=== PATIENT | male | born 1985 | race Two or more races ===

== ENCOUNTER 2018-02-07 12:51 | Inpatient (IN) | payer MEDICAID ==
--- NOTE | 2018-02-07 13:03 | ED Physician Chart ---
ED Chief Complaint/HPI - Patient Information Date Seen:: 02/07/18 Time Seen:: 13:02 Chief Complaint:: Abdominal pain History of Present Illness:: 32 yo male had chills, sweats, nausea, vomiting and diarrhea in the morning for 8 months. Patient started to have intermittent LUQ abdominal dull pain for 1.5 weeks. Two days ago, patient started to have intermittent sharp right flank pain. Since this morning, the pain had became worse and persisted. Patient vomited 12 times this morning. ED Review of Systems - Review of Systems General/Constitutional: Chills Skin: No rash Head: Light headed Eyes: No loss of vision ENT: Earache, No nasal drainage Neck: No neck pain Cardio Vascular: No palpitations GI: Nausea, Vomiting, Diarrhea, Pain Musculoskeletal: No bone or joint pain Psychiatric: No prior psych history Neurological: No focal symptoms ED Past Medical History - Past Medical History Past Medical History: No significant medical hx Social History: Non Smoker, Alcohol (occcoai), Illicit Drug Use (Marijuana) Surgical History: None Family Medical History - Family Member Maternal Grandmother Hx Family Cancer: Yes (Breast cancer) Mother History Unknown: Yes ED Physical Exam - Physical Examination General/Constitutional: Awake, Alert Head: Atraumatic Eyes: PERRL Skin: No skin lesions ENMT: Nasal exam nl Neck: No nuchal rigidity Respiratory: Nl effort/Exclusion, No Wheeze/Rhonchi/Rales Cardio Vascular: RRR, No murmur, gallop, rubs, NL S1 S2 Other GI comments:: Epigastric and LUQ tenderness. Right CVA percussion tenderness. Abdomen distended. Extremities: normal strength in all extremities Neuro/Psych: Alert/oriented, No focal deficits ED Labs/Radiology/EKG Results - Lab Results Results: Laboratory Last Values WBC 6.4 Th/cmm (4.8-10.8) 02/07/18 13:39 RBC 4.18 Mil/cmm (4.30-5.70) L 02/07/18 13:39 Hgb 14.6 gm/dL (12-16) 02/07/18 13:39 Hct 43.0 % (41.0-60) 02/07/18 13:39 MCV 102.7 fl (80-99) H 02/07/18 13:39 MCH 35.0 pg (26.0-30.0) H 02/07/18 13:39 MCHC Differential 34.0 pg (28.0-36.0) 02/07/18 13:39 RDW 13.1 % (11.5-20.0) 02/07/18 13:39 Plt Count 146 Th/cmm (150-400) L 02/07/18 13:39 MPV 9.5 fl 02/07/18 13:39 Add Manual Diff YES 02/07/18 13:39 Band Neutrophils % 16 % (0-10) H 02/07/18 13:39 Neutrophils (Manual) 71 % (40-80) 02/07/18 13:39 Lymphocytes 7 % (20-50) L 02/07/18 13:39 Monocytes 5 % (2-10) 02/07/18 13:39 Eosinophils 0 % (0-5) 02/07/18 13:39 Basophils 1 % (0-3) 02/07/18 13:39 Sodium 132 mEq/L (136-145) L 02/07/18 13:39 Potassium 3.6 mEq/L (3.5-5.1) 02/07/18 13:39 Chloride 99 mEq/L (98-107) 02/07/18 13:39 Carbon Dioxide 21.5 mEq/L (21.0-31.0) 02/07/18 13:39 Anion Gap 15.1 (7.0-16.0) 02/07/18 13:39 BUN 9 mg/dL (7-25) 02/07/18 13:39 Creatinine 0.9 mg/dL (0.7-1.3) 02/07/18 13:39 Est GFR ( Amer) > 60.0 ml/min (>90) 02/07/18 13:39 Est GFR (Non-Af Amer) > 60.0 ml/min 02/07/18 13:39 BUN/Creatinine Ratio 10.0 02/07/18 13:39 Glucose 186 mg/dL (70-105) H 02/07/18 13:39 Calcium 8.2 mg/dL (8.6-10.3) L 02/07/18 13:39 Total Bilirubin 1.6 mg/dL (0.3-1.0) H 02/07/18 13:39 AST 143 U/L (13-39) H 02/07/18 13:39 ALT 28 U/L (7-52) 02/07/18 13:39 Alkaline Phosphatase 149 U/L (34-104) H 02/07/18 13:39 Total Protein 6.5 gm/dL (6.0-8.3) 02/07/18 13:39 Albumin 3.4 gm/dL (4.2-5.5) L 02/07/18 13:39 Globulin 3.1 gm/dL 02/07/18 13:39 Albumin/Globulin Ratio 1.1 (1.0-1.8) 02/07/18 13:39 Amylase 37 U/L (29-103) 02/07/18 13:39 Lipase 42 U/L (11-82) 02/07/18 13:39 Urine Source RANDOM 02/07/18 14:20 Urine Color DARK YELLOW 02/07/18 14:20 Urine Clarity CLEAR (CLEAR) 02/07/18 14:20 Urine pH 6.0 (4.6 - 8.0) 02/07/18 14:20 Ur Specific [place] 1.025 (1.005-1.030) 02/07/18 14:20 Urine Protein 30 mg/dL (NEGATIVE) H 02/07/18 14:20 Urine Glucose (UA) NEGATIVE mg/dL (NEGATIVE) 02/07/18 14:20 Urine Ketones NEGATIVE mg/dL (NEGATIVE) 02/07/18 14:20 Urine Blood NEGATIVE (NEGATIVE) 02/07/18 14:20 Urine Nitrate NEGATIVE (NEGATIVE) 02/07/18 14:20 Urine Bilirubin NEGATIVE (NEGATIVE) 02/07/18 14:20 Urine Urobilinogen 0.2 E.U./dL (0.2 - 1.0) 02/07/18 14:20 Ur Leukocyte Esterase NEGATIVE (NEGATIVE) 02/07/18 14:20 Urine RBC 0-2 /hpf (0-5) H 02/07/18 14:20 Urine WBC 0-2 /hpf (0-5) 02/07/18 14:20 Ur Epithelial Cells OCCASIONAL /lpf (FEW) 02/07/18 14:20 Urine Bacteria NONE SEEN /hpf (NONE SEEN) 02/07/18 14:20 Fine Granular Casts 0-2 /lpf (NONE SEEN) H 02/07/18 14:20 Coarse Granular Casts 0-2 /lpf (NONE SEEN) H 02/07/18 14:20 Urine Opiates Screen POSITIVE (NEGATIVE) H 02/07/18 14:20 Urine Methadone Screen NEGATIVE (NEGATIVE) 02/07/18 14:20 Ur Barbiturates Screen NEGATIVE (NEGATIVE) 02/07/18 14:20 Ur Tricyclics Screen NEGATIVE (NEGATIVE) 02/07/18 14:20 Ur Phencyclidine Scrn NEGATIVE (NEGATIVE) 02/07/18 14:20 Amphetamines Screen NEGATIVE (NEGATIVE) 02/07/18 14:20 U Methamphetamines Scrn NEGATIVE (NEGATIVE) 02/07/18 14:20 U Benzodiazepines Scrn NEGATIVE (NEGATIVE) 02/07/18 14:20 U Cocaine Metab Screen NEGATIVE (NEGATIVE) 02/07/18 14:20 U Cannabinoids Screen POSITIVE (NEGATIVE) H 02/07/18 14:20 - Radiology Results Results: CT abdomen/pelvis: markedly dilated right renal pelvis with decreased size right kidney, suggesting chronic ureteropelvic junction obstruction with unknown etiology. Fatty infiltration liver - EKG Interpretations EKG Time:: 17:01 Rate & Rhythm: 109 bpm, sinus tachycardia [place]: normal axis Intervals: ND 142, QRS 86 ED Assessment - Assessment General Assessment: Obstructive uropathy Abdominal pain Fatty liver Hyponatremia Obesity Assessment/Comments:: CBC, CMP, amylase, lipase, UA, urine drug screen CT abdomen/pelvis wo contrast Morphine 1mg IV x 2 Admit to med surg ED Septic Shock - . Is Septic Shock (SBP<90, OR Lactate>4 mmol\L) present?: No ED Reassessment (Disposition) - Reassessment Reassessment Condition:: Improved - Patient Disposition Discharge/Transfer:: Acute Care w/in this hosp Admitting Medical Physician:: Celsa Santana
[2018-02-07] MEDS ORDERED: Morphine Sulfate 2 mg/mL 1mL Syr IV STA ×3 (13:28→15:34)
[2018-02-07] MEDS ORDERED: Morphine Sulfate 2 mg/mL 1mL Syr ONE ×2 (13:44→15:36)
[2018-02-07 13:46] LABS: HEMOGLOBIN 14.6 gm/dL (12-16); MEAN CELL VOLUME 102.7 fl (80-99); MEAN PLATELET VOLUME 9.5 fl; PLATELET COUNT 146 Th/cmm (150-400); RED BLOOD COUNT 4.18 Mil/cmm (4.30-5.70); RED CELL DISTRIBUTION WIDTH 13.1 % (11.5-20.0); WHITE BLOOD COUNT 6.4 Th/cmm (4.8-10.8)
[2018-02-07 14:21] LABS: ALB/GLOB RATIO 1.1 (1.0-1.8); ALBUMIN 3.4 gm/dL (4.2-5.5); ALKALINE PHOSPHATASE 149 U/L (34-104); AMYLASE SERUM 37 U/L (29-103); ANION GAP 15.1 (7.0-16.0); BILIRUBIN,TOTAL 1.6 mg/dL (0.3-1.0); BUN - UREA NITROGEN 9 mg/dL (7-25); CALCIUM SERUM 8.2 mg/dL (8.6-10.3); CARBON DIOXIDE 21.5 mEq/L (21.0-31.0); CHLORIDE 99 mEq/L (98-107); CREATININE - SERUM 0.9 mg/dL (0.7-1.3); GFR AFRICAN-AMERICAN > 60.0 ml/min (>90); GFR NON AFRICAN-AMERICAN > 60.0 ml/min; GLUCOSE 186 mg/dL (70-105); LIPASE 42 U/L (11-82); POTASSIUM SERUM 3.6 mEq/L (3.5-5.1); SGOT 143 U/L (13-39); SGPT/ALT 28 U/L (7-52); SODIUM SERUM 132 mEq/L (136-145); TOTAL PROTEIN,SERUM 6.5 gm/dL (6.0-8.3)
[2018-02-07 14:41] LABS: BAND NEUTROPHILE 16 % (0-10); BASOPHIL 1 % (0-3); EOSINOPHIL 0 % (0-5); LYMPHOCYTE 7 % (20-50); MONOCYTE 5 % (2-10); NEUTROPHILS 71 % (40-80)
[2018-02-07 15:02] LABS: URINE MICROSCOPIC INDICATED? YES; URINE SOURCE RANDOM
[2018-02-07] MEDS ORDERED: Sodium Chloride 0.9% 1,000 ML IV ONE (15:05)
[2018-02-07 15:06] LABS: URINE BILIRUBIN NEGATIVE (NEGATIVE); URINE BLOOD NEGATIVE (NEGATIVE); URINE GLUCOSE (UA) NEGATIVE (NEGATIVE); URINE KETONE NEGATIVE (NEGATIVE); URINE LEUKOCYTE ESTERASE NEGATIVE (NEGATIVE); URINE NITRATE NEGATIVE (NEGATIVE); URINE PROTEIN 30 mg/dL (NEGATIVE); URINE UROBILINOGEN 0.2 E.U./dL (0.2 - 1.0)
[2018-02-07 15:14] LABS: URINE CLARITY CLEAR (CLEAR)
[2018-02-07 15:18] LABS: URINE COLOR DARK YELLOW
[2018-02-07 15:19] LABS: URINE BACTERIA NONE SEEN /hpf (NONE SEEN); URINE COARSE GRANULAR CAST 0-2 /lpf (NONE SEEN); URINE EPITHELIAL CELLS OCCASIONAL /lpf (FEW); URINE FINE GRANULAR CAST 0-2 /lpf (NONE SEEN); URINE RBC 0-2 /hpf (0-5); URINE WBC 0-2 /hpf (0-5)
[2018-02-07 15:41] LABS: AMPHETAMINE URINE NEGATIVE (NEGATIVE); BARBITURATES URINE NEGATIVE (NEGATIVE); BENZODIAZEPINES QUAL URINE NEGATIVE (NEGATIVE); CANNABINOID THC POSITIVE (NEGATIVE); COCAINE METABOLITE QUAL URINE NEGATIVE (NEGATIVE); METHADONE URINE NEGATIVE (NEGATIVE); METHAMPHETAMINES QUAL URINE NEGATIVE (NEGATIVE); OPIATES (MORPHINE) QUAL. URINE POSITIVE (NEGATIVE); PHENCYCLIDINE (PCP) URINE NEGATIVE (NEGATIVE); TRICYCLICS (TCA) QUAL. URINE NEGATIVE (NEGATIVE)
[2018-02-07] MEDS: Morphine Sulfate 2 mg/mL 1mL Syr IVP PRN ×2 (20:04→23:38)
[2018-02-07] MEDS: D5-0.45NS 1,000 ML IV SCH (20:05)
[2018-02-07 20:58] LABS: A1C % 5.1 % (4.0-6.0)
[2018-02-07] MEDS ORDERED: cefTRIAXone 1 GM in Sodium Chloride 0.9% 50 ML IV SCH (21:00)
[2018-02-08] MEDS: Morphine Sulfate 2 mg/mL 1mL Syr IVP PRN ×2 (03:57→07:36)
[2018-02-08 06:29] LABS: % BASOPHILS 0.7 % (0.0-2.0); % EOSINOPHILS 1.3 % (0.0-5.0); % LYMPHOCYTES 33.1 % (20.0-50.0); % MONOCYTES 9.7 % (2.0-10.0); % NEUTROPHILS 55.2 % (40.0-80.0); EOSINOPHILE ABSOLUTE 0.1 Th/cmm (0.1-0.4); HEMATOCRIT 38.3 % (41.0-60); HEMOGLOBIN 13.4 gm/dL (12-16); LYMPHOCYTE ABSOLUTE 1.6 Th/cmm (1.5-3.0); MEAN CELL VOLUME 102.2 fl (80-99); MEAN CORPUSCULAR HEMOGLOBIN 35.8 pg (26.0-30.0); MEAN CORPUSCULAR HGB CONC 35.1 pg (28.0-36.0); MEAN PLATELET VOLUME 9.9 fl; MONOCYTE ABSOLUTE 0.5 Th/cmm (0.3-1.0); NEUTROPHILE ABSOLUTE 2.5 Th/cmm (1.8-8.0); PLATELET COUNT 127 Th/cmm (150-400); RED BLOOD COUNT 3.74 Mil/cmm (4.30-5.70); RED CELL DISTRIBUTION WIDTH 12.9 % (11.5-20.0); WHITE BLOOD COUNT 4.7 Th/cmm (4.8-10.8)
[2018-02-08 06:43] LABS: ALB/GLOB RATIO 1.1 (1.0-1.8); ALBUMIN 3.2 gm/dL (4.2-5.5); ALKALINE PHOSPHATASE 107 U/L (34-104); ANION GAP 9.8 (7.0-16.0); BILIRUBIN,TOTAL 2.2 mg/dL (0.3-1.0); BUN - UREA NITROGEN 6 mg/dL (7-25); CALCIUM SERUM 8.1 mg/dL (8.6-10.3); CARBON DIOXIDE 26.2 mEq/L (21.0-31.0); CHLORIDE 100 mEq/L (98-107); CHOLESTEROL 128 mg/dL (<200); CREATININE - SERUM 0.8 mg/dL (0.7-1.3); GFR AFRICAN-AMERICAN > 60.0 ml/min (>90); GFR NON AFRICAN-AMERICAN > 60.0 ml/min; HDL -HIGH DENSITY LIPOPROTEIN 17 mg/dL (23-92); LIPASE 19 U/L (11-82); MAGNESIUM 1.5 mg/dL (1.9-2.7); SGOT 121 U/L (13-39); SGPT/ALT 21 U/L (7-52); SODIUM SERUM 133 mEq/L (136-145); TRIGLYCERIDES 197 mg/dL (<150)
[2018-02-08 07:06] LABS: GLUCOSE 99 mg/dL (70-105)
--- NOTE | 2018-02-08 09:13 | Diagnostic Imaging Report ---
CT scan abdomen and pelvis without intravenous contrast HISTORY: Pain Total DLP equals 694 CTDI equals 13.1 Axial sections were obtained from the xiphoid process down to the pubic symphysis. The liver is enlarged. There is a pronounced decrease in hepatic parenchymal density. The findings are consistent with fatty infiltration and should be correlated with liver function tests. No focal lesions. The spleen appears normal. No abnormality seen in the region of the pancreas. There is marked dilatation of the right renal pelvis. Diminished irregular renal parenchyma noted. The right ureter does not appear to be dilated. Changes associated with a chronic UPJ obstruction cannot be excluded. Exact etiology uncertain. The left kidney appears normal. The exam of the pelvis demonstrates preservation of normal fat planes. No abnormal soft tissue masses or abnormal fluid collections. IMPRESSION: 1. Markedly dilated right renal pelvis with decreased an irregular renal parenchyma. Changes associated with a chronic UPJ obstruction cannot be excluded. Exact etiology uncertain. 2. Hepatomegaly with findings consistent with fatty infiltration. The changes should be correlated with liver function tests.
[2018-02-08] MEDS: D5-0.45NS 1,000 ML IV SCH (10:03)
--- NOTE | 2018-02-08 10:51 | History and Physical ---
History of Present Illness - HPI Chief Complaint: abdominal pain HPI: patient refer that x long time he has been having occasional nausea, occasional abdominal pain and occasional diarrhea. Pain increased and came to ER for evaluation. 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: Report: No Pertinent Hx GI: Report: Other (Frequent diarrhea and abdominal pain.) Psych: Report: Addictions Musculoskeletal: Report: No Pertinent Hx Rheumatologic: Report: No pertinent Hx Infectious Disease: Report: No Pertinent Hx Renal/: Report: No Pertinent Hx Endocrine: Report: No Pertinent Hx Dermatology: Report: No Pertinent Hx - Past Surgical History Past Surgical History: No pertinent Hx Family Medical History - Family Member Mother History Unknown: Yes Maternal Grandmother Hx Family Cancer: Yes (Breast cancer) Social History Smoke: No Alcohol: Heavy Drugs: Marijuana Lives: With Family Domestic Violence: Negative - Medications Home Medications: Home Medication Medication Instructions Recorded Type NK [No Home Meds] 02/07/18 History - Allergies Allergies/Adverse Reactions: Allergies Allergy/AdvReac Type Severity Reaction Status Date / Time No Known Allergies Allergy Verified 02/07/18 13:16 Review of Systems - Review of Systems Constitutional: Report: No Significant Eyes: Report: No Significant ENT: Report: No Significant Respiratory: Report: No Significant Cardiovascular: Report: No Significant Gastrointestinal: Report: Nausea, Vomiting, Abdominal Pain Genitourinary: Report: No Significant Musculoskeletal: Report: No Significant Skin: Report: No Significant Neurological: Report: No Significant Physical Exam - Physical Exam HEENT: Report: Ears Nose Throat within normal limits Neck: Report: Within normal limits Cardiovascular Systems: Report: Regular, Rate and Rhythm Respiratory: Report: Breath Sounds are within normal limits Abdomen: Report: Tender to palpation, Other (Tender at all colon) - Lab Results All Lab Results last 24 hours: Laboratory Results - last 24 hr 02/07/18 02/07/18 02/07/18 13:39 13:39 13:39 WBC 6.4 RBC 4.18 L Hgb 14.6 Hct 43.0 MCV 102.7 H MCH 35.0 H MCHC Differential 34.0 RDW 13.1 Plt Count 146 L MPV 9.5 Add Manual Diff YES Neutrophils % Band Neutrophils % 16 H Lymphocytes % Monocytes % Eosinophils % Basophils % Neutrophils (Manual) 71 Lymphocytes 7 L Monocytes 5 Eosinophils 0 Basophils 1 Sodium 132 L Potassium 3.6 Chloride 99 Carbon Dioxide 21.5 Anion Gap 15.1 BUN 9 Creatinine 0.9 Est GFR ( Amer) > 60.0 Est GFR (Non-Af Amer) > 60.0 BUN/Creatinine Ratio 10.0 Glucose 186 H Hemoglobin A1c % 5.1 Calcium 8.2 L Magnesium Total Bilirubin 1.6 H AST 143 H ALT 28 Alkaline Phosphatase 149 H Total Protein 6.5 Albumin 3.4 L Globulin 3.1 Albumin/Globulin Ratio 1.1 Triglycerides Cholesterol LDL Cholesterol Direct HDL Cholesterol Amylase 37 Lipase 42 TSH Urine Source Urine Color Urine Clarity Urine pH Ur Specific [place] Urine Protein Urine Glucose (UA) Urine Ketones Urine Blood Urine Nitrate Urine Bilirubin Urine Urobilinogen Ur Leukocyte Esterase Urine RBC Urine WBC Ur Epithelial Cells Urine Bacteria Fine Granular Casts Coarse Granular Casts Urine Opiates Screen Urine Methadone Screen Ur Barbiturates Screen Ur Tricyclics Screen Ur Phencyclidine Scrn Amphetamines Screen U Methamphetamines Scrn U Benzodiazepines Scrn U Cocaine Metab Screen U Cannabinoids Screen 02/07/18 02/07/18 02/08/18 14:20 14:20 06:05 WBC 4.7 L RBC 3.74 L Hgb 13.4 Hct 38.3 L MCV 102.2 H MCH 35.8 H MCHC Differential 35.1 RDW 12.9 Plt Count 127 L MPV 9.9 Add Manual Diff Neutrophils % 55.2 Band Neutrophils % Lymphocytes % 33.1 Monocytes % 9.7 Eosinophils % 1.3 Basophils % 0.7 Neutrophils (Manual) Lymphocytes Monocytes Eosinophils Basophils Sodium Potassium Chloride Carbon Dioxide Anion Gap BUN Creatinine Est GFR ( Amer) Est GFR (Non-Af Amer) BUN/Creatinine Ratio Glucose Hemoglobin A1c % Calcium Magnesium Total Bilirubin AST ALT Alkaline Phosphatase Total Protein Albumin Globulin Albumin/Globulin Ratio Triglycerides Cholesterol LDL Cholesterol Direct HDL Cholesterol Amylase Lipase TSH Urine Source RANDOM Urine Color DARK YELLOW Urine Clarity CLEAR Urine pH 6.0 Ur Specific [place] 1.025 Urine Protein 30 H Urine Glucose (UA) NEGATIVE Urine Ketones NEGATIVE Urine Blood NEGATIVE Urine Nitrate NEGATIVE Urine Bilirubin NEGATIVE Urine Urobilinogen 0.2 Ur Leukocyte Esterase NEGATIVE Urine RBC 0-2 H Urine WBC 0-2 Ur Epithelial Cells OCCASIONAL Urine Bacteria NONE SEEN Fine Granular Casts 0-2 H Coarse Granular Casts 0-2 H Urine Opiates Screen POSITIVE H Urine Methadone Screen NEGATIVE Ur Barbiturates Screen NEGATIVE Ur Tricyclics Screen NEGATIVE Ur Phencyclidine Scrn NEGATIVE Amphetamines Screen NEGATIVE U Methamphetamines Scrn NEGATIVE U Benzodiazepines Scrn NEGATIVE U Cocaine Metab Screen NEGATIVE U Cannabinoids Screen POSITIVE H 02/08/18 02/08/18 06:05 06:05 WBC RBC Hgb Hct MCV MCH MCHC Differential RDW Plt Count MPV Add Manual Diff Neutrophils % Band Neutrophils % Lymphocytes % Monocytes % Eosinophils % Basophils % Neutrophils (Manual) Lymphocytes Monocytes Eosinophils Basophils Sodium 133 L Potassium 3.0 L Chloride 100 Carbon Dioxide 26.2 Anion Gap 9.8 BUN 6 L Creatinine 0.8 Est GFR ( Amer) > 60.0 Est GFR (Non-Af Amer) > 60.0 BUN/Creatinine Ratio 7.5 Glucose 99 D Hemoglobin A1c % Calcium 8.1 L Magnesium 1.5 L Total Bilirubin 2.2 H AST 121 H ALT 21 Alkaline Phosphatase 107 H Total Protein 6.0 Albumin 3.2 L Globulin 2.8 Albumin/Globulin Ratio 1.1 Triglycerides 197 H Cholesterol 128 LDL Cholesterol Direct 77 HDL Cholesterol 17 L Amylase Lipase 19 TSH 2.51 Urine Source Urine Color Urine Clarity Urine pH Ur Specific [place] Urine Protein Urine Glucose (UA) Urine Ketones Urine Blood Urine Nitrate Urine Bilirubin Urine Urobilinogen Ur Leukocyte Esterase Urine RBC Urine WBC Ur Epithelial Cells Urine Bacteria Fine Granular Casts Coarse Granular Casts Urine Opiates Screen Urine Methadone Screen Ur Barbiturates Screen Ur Tricyclics Screen Ur Phencyclidine Scrn Amphetamines Screen U Methamphetamines Scrn U Benzodiazepines Scrn U Cocaine Metab Screen U Cannabinoids Screen - Assessment Assessment: Current Active Problems Problem Status Onset LEFT SIDED ABDOMINAL PAIN WITH N/V/D Acute Patient is awake, alert, in no acute distress. Abdominal CT shows fatty liver and right renal dilatation. 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
[2018-02-08] MEDS ORDERED: Mag Sulfate 2gm/50mL Premix 2 GM/50 ML BAG IV ONE ×2 (11:07→11:09)
[2018-02-08] MEDS ORDERED: KCL 20mEq/100mL Premix 20 MEQ/100 ML PIGGYBACK IV SCH ×2 (11:30→12:50)
[2018-02-08] MEDS: Dicyclomine 10 mg Cap PO SCH ×2 (11:37→16:20)
== END 2018-02-08 16:35 | disposition home or self-care (01) | DRG 249 ==
LOC: ER 12:51 → MSI 17:13
PROVIDERS: ADMIT Internal Medicine; ATTEND Internal Medicine
DX: K52.9 Noninfective gastroenteritis and colitis, unspecified (principal); K76.0 Fatty (change of) liver, not elsewhere classified; E87.1 Hypo-osmolality and hyponatremia; N13.9 Obstructive and reflux uropathy, unspecified; F11.20 Opioid dependence, uncomplicated; E66.9 Obesity, unspecified; F10.20 Alcohol dependence, uncomplicated; F12.20 Cannabis dependence, uncomplicated; Y90.9 Presence of alcohol in blood, level not specified; Z80.3 Family history of malignant neoplasm of breast; Z68.36 Body mass index [BMI] 36.0-36.9, adult
CPT/HCPCS: 36415-UA; 80053-TC; 80061-TC; 80307; 81001-TC; 82150-TC; 83036-90; 83690-TC; 83735-TC; 84443-TC; 85007-TC; 85025-TC; 93005; 96375; 96376; C9113; J0696; J2270; J3475; J3480

== ENCOUNTER 2018-04-30 20:15 | Inpatient (IN) | payer MEDICAID ==
[2018-04-30 20:46] LABS: % BASOPHILS 0.5 % (0.0-2.0); % EOSINOPHILS 0.4 % (0.0-5.0); % LYMPHOCYTES 23.2 % (20.0-50.0); % MONOCYTES 7.3 % (2.0-10.0); % NEUTROPHILS 68.6 % (40.0-80.0); HEMATOCRIT 40.6 % (41.0-60); LYMPHOCYTE ABSOLUTE 2.1 Th/cmm (1.5-3.0); MEAN CORPUSCULAR HEMOGLOBIN 33.8 pg (26.0-30.0); MEAN CORPUSCULAR HGB CONC 34.5 pg (28.0-36.0); MEAN PLATELET VOLUME 8.5 fl; MONOCYTE ABSOLUTE 0.7 Th/cmm (0.3-1.0); NEUTROPHILE ABSOLUTE 6.3 Th/cmm (1.8-8.0); PLATELET COUNT 176 Th/cmm (150-400); RED BLOOD COUNT 4.14 Mil/cmm (4.30-5.70); WHITE BLOOD COUNT 9.1 Th/cmm (4.8-10.8)
[2018-04-30] MEDS ORDERED: Morphine Sulfate 2 mg/mL 1mL Syr IV STA ×2 (20:54→20:58)
[2018-04-30] MEDS ORDERED: Sodium Chloride 0.9% 1,000 ML IV ONE (20:57)
[2018-04-30] MEDS ORDERED: Morphine Sulfate 4 mg/mL 1mL Syr ONE (20:59)
[2018-04-30 21:02] LABS: ALB/GLOB RATIO 1.1 (1.0-1.8); ALBUMIN 3.5 gm/dL (4.2-5.5); ALKALINE PHOSPHATASE 118 U/L (34-104); AMYLASE SERUM 48 U/L (29-103); ANION GAP 14.1 (7.0-16.0); BILIRUBIN,TOTAL 1.5 mg/dL (0.3-1.0); BUN - UREA NITROGEN 9 mg/dL (7-25); CALCIUM SERUM 8.1 mg/dL (8.6-10.3); CARBON DIOXIDE 26.3 mEq/L (21.0-31.0); CHLORIDE 103 mEq/L (98-107); CREATININE - SERUM 1.1 mg/dL (0.7-1.3); GFR AFRICAN-AMERICAN > 60.0 ml/min (>90); GFR NON AFRICAN-AMERICAN > 60.0 ml/min; GLUCOSE 127 mg/dL (70-105); LIPASE 86 U/L (11-82); POTASSIUM SERUM 3.4 mEq/L (3.5-5.1); SGOT 166 U/L (13-39); SGPT/ALT 30 U/L (7-52); SODIUM SERUM 140 mEq/L (136-145); TOTAL PROTEIN,SERUM 6.8 gm/dL (6.0-8.3)
[2018-04-30 21:03] LABS: URINE SOURCE CLEAN C
[2018-04-30 21:08] LABS: URINE BILIRUBIN NEGATIVE (NEGATIVE); URINE BLOOD NEGATIVE (NEGATIVE); URINE GLUCOSE (UA) NEGATIVE (NEGATIVE); URINE KETONE NEGATIVE (NEGATIVE); URINE LEUKOCYTE ESTERASE NEGATIVE (NEGATIVE); URINE MICROSCOPIC INDICATED? YES; URINE NITRATE NEGATIVE (NEGATIVE); URINE PROTEIN TRACE mg/dL (NEGATIVE)
[2018-04-30 21:09] LABS: URINE CLARITY CLEAR (CLEAR); URINE COLOR YELLOW
[2018-04-30 21:13] LABS: URINE BACTERIA OCCASIONAL /hpf (NONE SEEN); URINE EPITHELIAL CELLS FEW /lpf (FEW); URINE RBC NONE SEEN /hpf (0-5); URINE WBC 0-2 /hpf (0-5)
[2018-04-30] MEDS ORDERED: Potassium Chloride 20 mEq ER Tab PO ONE (21:34)
[2018-04-30] MEDS ORDERED: D5-0.9%NS 1,000 ML IV SCH (22:33)
[2018-04-30] MEDS ORDERED: Morphine Sulfate 2 mg/mL 1mL Syr IVP SCH (22:45)
[2018-05-01 01:44] VITALS: BP 142/70
[2018-05-01] MEDS ORDERED: Morphine Sulfate 2 mg/mL 1mL Syr IVP PRN (04:11)
[2018-05-01 06:18] LABS: % BASOPHILS 0.7 % (0.0-2.0); % EOSINOPHILS 1.3 % (0.0-5.0); % LYMPHOCYTES 35.2 % (20.0-50.0); % MONOCYTES 8.3 % (2.0-10.0); % NEUTROPHILS 54.5 % (40.0-80.0); EOSINOPHILE ABSOLUTE 0.1 Th/cmm (0.1-0.4); HEMOGLOBIN 12.8 gm/dL (12-16); LYMPHOCYTE ABSOLUTE 2.2 Th/cmm (1.5-3.0); MEAN CELL VOLUME 97.6 fl (80-99); MEAN CORPUSCULAR HEMOGLOBIN 33.7 pg (26.0-30.0); MEAN CORPUSCULAR HGB CONC 34.6 pg (28.0-36.0); MEAN PLATELET VOLUME 8.6 fl; MONOCYTE ABSOLUTE 0.5 Th/cmm (0.3-1.0); NEUTROPHILE ABSOLUTE 3.4 Th/cmm (1.8-8.0); PLATELET COUNT 156 Th/cmm (150-400); RED BLOOD COUNT 3.79 Mil/cmm (4.30-5.70); RED CELL DISTRIBUTION WIDTH 15.1 % (11.5-20.0); WHITE BLOOD COUNT 6.2 Th/cmm (4.8-10.8)
[2018-05-01 06:31] LABS: ALKALINE PHOSPHATASE 119 U/L (34-104); ANION GAP 11.2 (7.0-16.0); BILIRUBIN,TOTAL 0.8 mg/dL (0.3-1.0); BUN - UREA NITROGEN 9 mg/dL (7-25); CALCIUM SERUM 7.8 mg/dL (8.6-10.3); CARBON DIOXIDE 29.1 mEq/L (21.0-31.0); CHLORIDE 103 mEq/L (98-107); GFR AFRICAN-AMERICAN > 60.0 ml/min (>90); GFR NON AFRICAN-AMERICAN > 60.0 ml/min; GLUCOSE 100 mg/dL (70-105); POTASSIUM SERUM 3.3 mEq/L (3.5-5.1); SGOT 136 U/L (13-39); SGPT/ALT 25 U/L (7-52); SODIUM SERUM 140 mEq/L (136-145); TOTAL PROTEIN,SERUM 5.9 gm/dL (6.0-8.3)
--- NOTE | 2018-05-01 08:21 | History and Physical ---
History of Present Illness - HPI Chief Complaint: LUQ abdominal pain HPI: 32 y/o male who presents to [facility] ER for Left Upper Quadrant abdomen pain with nausea, vomiting. decreased appetite. Patient was seen and evaluated in the past. last admission was January 2018 for similar complaints. Was diagnosed with colitis at the time. Patient presents with similar complaints. Patient has no significant past medical history except for his last admission in January. No surgical history. Family history ... non-contributory Labs ... WBC 9.1 H/H 14.0/40.6 platelet 176K Na 140 K 3.4 Bun/Cr 9/1.1 glu 127 UA neg Patient was subsequently admitted for further evaluation and treatment. Vital Signs: Last Vital Signs Temp 97 F 05/01/18 03:08 Pulse 69 05/01/18 03:08 Resp 18 05/01/18 03:08 BP 142/77 05/01/18 03:08 Pulse Ox 96 05/01/18 03:08 Past Medical History Cardiovascular: Report: No Pertinent Hx Pulmonary: Report: No Pertinent Hx [employer]: Report: No Pertinent Hx GI: Report: Other (Colitis) Psych: Report: No Pertinent Hx Musculoskeletal: Report: No Pertinent Hx Rheumatologic: Report: No pertinent Hx Infectious Disease: Report: No Pertinent Hx Renal/: Report: No Pertinent Hx Endocrine: Report: No Pertinent Hx Dermatology: Report: No Pertinent Hx - Past Surgical History Past Surgical History: No pertinent Hx Family Medical History - Family Member Mother History Unknown: Yes Maternal Grandmother History Unknown: Yes Hx Family Cancer: Yes (Breast cancer) Father Ethnicity: Living Status: Still Living Hx Family Diabetes: Yes Social History Smoke: No Alcohol: None Drugs: None Lives: Alone - Medications Home Medications: Home Medication Medication Instructions Recorded Type NK [No Home Meds] 02/07/18 History - Allergies Allergies/Adverse Reactions: Allergies Allergy/AdvReac Type Severity Reaction Status Date / Time No Known Allergies Allergy Verified 02/07/18 13:16 Review of Systems - Review of Systems Constitutional: Report: No Significant Eyes: Report: No Significant ENT: Report: No Significant Respiratory: Report: No Significant Cardiovascular: Report: No Significant Gastrointestinal: Report: Nausea, Vomiting, Abdominal Pain, Diarrhea Genitourinary: Report: No Significant Musculoskeletal: Report: No Significant Skin: Report: No Significant Neurological: Report: No Significant Physical Exam - Physical Exam HEENT: Report: Ears Nose Throat within normal limits, Pharnyx within normal limits Neck: Report: Within normal limits Cardiovascular Systems: Report: +s1/s2 noted, Regular, Rate and Rhythm Respiratory: Report: Breath Sounds are within normal limits, Clear to Auscultation of lung de Abdomen: Report: Tender to palpation, Other (LUQ/LLQ abd tenderness) Back: Report: Inspection of back is within normal limits. Extremities: Report: Non-tender to palpation. Skin: Report: Color of skin is within normal limits - Lab Results All Lab Results last 24 hours: Laboratory Results - last 24 hr 04/30/18 04/30/18 04/30/18 20:25 20:35 20:35 WBC 9.1 RBC 4.14 L Hgb 14.0 Hct 40.6 L MCV 98.0 MCH 33.8 H MCHC Differential 34.5 RDW 15.0 Plt Count 176 MPV 8.5 Neutrophils % 68.6 Lymphocytes % 23.2 Monocytes % 7.3 Eosinophils % 0.4 Basophils % 0.5 Sodium 140 Potassium 3.4 L Chloride 103 Carbon Dioxide 26.3 Anion Gap 14.1 BUN 9 Creatinine 1.1 Est GFR ( Amer) > 60.0 Est GFR (Non-Af Amer) > 60.0 BUN/Creatinine Ratio 8.2 Glucose 127 H POC Glucose Calcium 8.1 L Total Bilirubin 1.5 H AST 166 H ALT 30 Alkaline Phosphatase 118 H Total Protein 6.8 Albumin 3.5 L Globulin 3.3 Albumin/Globulin Ratio 1.1 Amylase 48 Lipase 86 H Urine Source CLEAN C Urine Color YELLOW Urine Clarity CLEAR Urine pH 6.0 Ur Specific [place] 1.010 Urine Protein TRACE Urine Glucose (UA) NEGATIVE Urine Ketones NEGATIVE Urine Blood NEGATIVE Urine Nitrate NEGATIVE Urine Bilirubin NEGATIVE Urine Urobilinogen 1.0 Ur Leukocyte Esterase NEGATIVE Urine RBC NONE SEEN Urine WBC 0-2 Ur Epithelial Cells FEW Urine Bacteria OCCASIONAL 05/01/18 05/01/18 05/01/18 00:45 05:26 05:26 WBC 6.2 RBC 3.79 L Hgb 12.8 Hct 37.0 L MCV 97.6 MCH 33.7 H MCHC Differential 34.6 RDW 15.1 Plt Count 156 MPV 8.6 Neutrophils % 54.5 Lymphocytes % 35.2 Monocytes % 8.3 Eosinophils % 1.3 Basophils % 0.7 Sodium 140 Potassium 3.3 L Chloride 103 Carbon Dioxide 29.1 Anion Gap 11.2 BUN 9 Creatinine 1.0 Est GFR ( Amer) > 60.0 Est GFR (Non-Af Amer) > 60.0 BUN/Creatinine Ratio 9.0 Glucose 100 POC Glucose 123 H Calcium 7.8 L Total Bilirubin 0.8 AST 136 H ALT 25 Alkaline Phosphatase 119 H Total Protein 5.9 L Albumin 3.0 L Globulin 2.9 Albumin/Globulin Ratio 1.0 Amylase Lipase Urine Source Urine Color Urine Clarity Urine pH Ur Specific [place] Urine Protein Urine Glucose (UA) Urine Ketones Urine Blood Urine Nitrate Urine Bilirubin Urine Urobilinogen Ur Leukocyte Esterase Urine RBC Urine WBC Ur Epithelial Cells Urine Bacteria - Assessment Assessment: abd pain LLQ abd pain r/o diverticulitis/colitis hypokalemia elevated BP - Plan Plan: will keep NPO continue IV fluids IV pain meds zofran iv start flagyl IV and Levoquin IV GI consult CT abd/pelvis pending [place] 40meq CMP,CBC tomorrow AM
--- NOTE | 2018-05-01 08:45 | Diagnostic Imaging Report ---
CT abdomen and pelvis without intravenous contrast Indication: Abdominal pain Comparison: CT abdomen and pelvis on 02/07/2018, Technique: Axial images were obtained from the lung bases to the bilateral proximal femurs without IV contrast. Coronal reconstructions were made. total DLP: 705, CTDI13.1 FINDINGS: Hypoventilatory changes of the lung bases are noted. Assessment of the solid organs is limited due to lack of IV contrast. Hepatomegaly seen with diffuse fatty infiltration. No focal lesions identified. No focal splenic, pancreatic, or adrenal lesions. There is moderate right hydronephrosis with narrowing of the right UPJ. Right renal scarring is noted. No renal stones identified. No evidence of bowel obstruction. Appendix is not visualized. No free air or free fluid. The osseous structures demonstrate no acute abnormalities. IMPRESSION: Chronic appearing moderate right hydronephrosis and right renal scarring. There is probable narrowing of the right ureteropelvic junction. Please correlate with clinical history. Similar findings were seen on prior exam. Hepatomegaly with fatty infiltration No evidence of bowel obstruction.
[2018-05-01] MEDS: KCL 20mEq/100mL Premix 20 MEQ/100 ML PIGGYBACK IV SCH ×2 (08:51→14:18)
[2018-05-01] MEDS: Levofloxacin 500mg/100mL 500 MG/100 ML BAG IV SCH (08:54)
[2018-05-01] MEDS: D5-0.9NS w/KCL 20mEq 1,000 ML IV SCH (08:57)
[2018-05-01] MEDS: metroNIDAZOLE 500mg/NS 100mL 500 MG/100 ML BAG IV SCH ×2 (12:41→20:46)
[2018-05-01] MEDS: Morphine Sulfate 4 mg/mL 1mL Syr IVP PRN ×3 (13:21→22:12)
[2018-05-02] MEDS: Morphine Sulfate 4 mg/mL 1mL Syr IVP PRN ×3 (04:12→12:51)
[2018-05-02] MEDS: D5-0.9NS w/KCL 20mEq 1,000 ML IV SCH (04:12)
[2018-05-02] MEDS: metroNIDAZOLE 500mg/NS 100mL 500 MG/100 ML BAG IV SCH ×2 (04:43→14:57)
[2018-05-02 05:04] LABS: % EOSINOPHILS 1.2 % (0.0-5.0); EOSINOPHILE ABSOLUTE 0.1 Th/cmm (0.1-0.4); HEMOGLOBIN 13.6 gm/dL (12-16); LYMPHOCYTE ABSOLUTE 2.2 Th/cmm (1.5-3.0); MONOCYTE ABSOLUTE 0.5 Th/cmm (0.3-1.0); RED CELL DISTRIBUTION WIDTH 14.8 % (11.5-20.0); WHITE BLOOD COUNT 6.1 Th/cmm (4.8-10.8)
[2018-05-02 05:10] LABS: % BASOPHILS 3.3 % (0.0-2.0); % LYMPHOCYTES 36.8 % (20.0-50.0); % MONOCYTES 8.7 % (2.0-10.0); BASOPHILE ABSOLUTE 0.2 Th/cumm (0-0.2); HEMATOCRIT 39.1 % (41.0-60); MEAN CELL VOLUME 98.2 fl (80-99); MEAN CORPUSCULAR HEMOGLOBIN 34.1 pg (26.0-30.0); MEAN CORPUSCULAR HGB CONC 34.7 pg (28.0-36.0); MEAN PLATELET VOLUME 9.1 fl; NEUTROPHILE ABSOLUTE 3.1 Th/cmm (1.8-8.0); PLATELET COUNT 130 Th/cmm (150-400); RED BLOOD COUNT 3.99 Mil/cmm (4.30-5.70)
[2018-05-02 05:16] LABS: ALB/GLOB RATIO 0.9 (1.0-1.8); ALBUMIN 3.2 gm/dL (4.2-5.5); ALKALINE PHOSPHATASE 100 U/L (34-104); ANION GAP 13.9 (7.0-16.0); BILIRUBIN,TOTAL 2.4 mg/dL (0.3-1.0); BUN - UREA NITROGEN 5 mg/dL (7-25); CALCIUM SERUM 8.5 mg/dL (8.6-10.3); CARBON DIOXIDE 27.2 mEq/L (21.0-31.0); CHLORIDE 100 mEq/L (98-107); CREATININE - SERUM 0.9 mg/dL (0.7-1.3); GFR AFRICAN-AMERICAN > 60.0 ml/min (>90); GFR NON AFRICAN-AMERICAN > 60.0 ml/min; GLUCOSE 105 mg/dL (70-105); LIPASE 56 U/L (11-82); POTASSIUM SERUM 3.1 mEq/L (3.5-5.1); SGOT 151 U/L (13-39); SGPT/ALT 26 U/L (7-52); SODIUM SERUM 138 mEq/L (136-145); TOTAL PROTEIN,SERUM 6.6 gm/dL (6.0-8.3)
[2018-05-02 05:26] LABS: INR 1.25 (0.5-1.4); PROTHROMBIN TIME (TEST) 12.9 SECONDS (9.5-11.5)
[2018-05-02] MEDS: KCL 20mEq/100mL Premix 20 MEQ/100 ML PIGGYBACK IV SCH ×2 (07:36→10:00)
--- NOTE | 2018-05-02 08:17 | General Progress Note ---
Subjective - Review of Systems Service Date: 05/02/18 Subjective: Patient is schedule for EGD this AM. Patient still having some loose stools. Nausea has improved. abdominal pain. Objective - Results Result Diagrams: 05/02/18 04:45 05/02/18 04:45 Recent Labs: Laboratory Last Values WBC 6.1 Th/cmm (4.8-10.8) 05/02/18 04:45 RBC 3.99 Mil/cmm (4.30-5.70) L 05/02/18 04:45 Hgb 13.6 gm/dL (12-16) 05/02/18 04:45 Hct 39.1 % (41.0-60) L 05/02/18 04:45 MCV 98.2 fl (80-99) 05/02/18 04:45 MCH 34.1 pg (26.0-30.0) H 05/02/18 04:45 MCHC Differential 34.7 pg (28.0-36.0) 05/02/18 04:45 RDW 14.8 % (11.5-20.0) 05/02/18 04:45 Plt Count 130 Th/cmm (150-400) L 05/02/18 04:45 MPV 9.1 fl 05/02/18 04:45 Neutrophils % 50.0 % (40.0-80.0) 05/02/18 04:45 Lymphocytes % 36.8 % (20.0-50.0) 05/02/18 04:45 Monocytes % 8.7 % (2.0-10.0) 05/02/18 04:45 Eosinophils % 1.2 % (0.0-5.0) 05/02/18 04:45 Basophils % 3.3 % (0.0-2.0) H 05/02/18 04:45 PT 12.9 SECONDS (9.5-11.5) H 05/02/18 04:45 INR 1.25 (0.5-1.4) 05/02/18 04:45 PTT (Actin FS) 25.9 SECONDS (26.0-38.0) L 05/02/18 04:45 Sodium 138 mEq/L (136-145) 05/02/18 04:45 Potassium 3.1 mEq/L (3.5-5.1) L 05/02/18 04:45 Chloride 100 mEq/L (98-107) 05/02/18 04:45 Carbon Dioxide 27.2 mEq/L (21.0-31.0) 05/02/18 04:45 Anion Gap 13.9 (7.0-16.0) 05/02/18 04:45 BUN 5 mg/dL (7-25) L 05/02/18 04:45 Creatinine 0.9 mg/dL (0.7-1.3) 05/02/18 04:45 Est GFR ( Amer) > 60.0 ml/min (>90) 05/02/18 04:45 Est GFR (Non-Af Amer) > 60.0 ml/min 05/02/18 04:45 BUN/Creatinine Ratio 5.6 05/02/18 04:45 Glucose 105 mg/dL (70-105) 05/02/18 04:45 POC Glucose 123 MG/DL (70 - 105) H 05/01/18 00:45 Calcium 8.5 mg/dL (8.6-10.3) L 05/02/18 04:45 Magnesium 2.0 mg/dL (1.9-2.7) 05/01/18 05:26 Total Bilirubin 2.4 mg/dL (0.3-1.0) H 05/02/18 04:45 AST 151 U/L (13-39) H 05/02/18 04:45 ALT 26 U/L (7-52) 05/02/18 04:45 Alkaline Phosphatase 100 U/L (34-104) 05/02/18 04:45 Total Protein 6.6 gm/dL (6.0-8.3) 05/02/18 04:45 Albumin 3.2 gm/dL (4.2-5.5) L 05/02/18 04:45 Globulin 3.4 gm/dL 05/02/18 04:45 Albumin/Globulin Ratio 0.9 (1.0-1.8) L 05/02/18 04:45 Amylase 48 U/L (29-103) 04/30/18 20:35 Lipase 56 U/L (11-82) 05/02/18 04:45 Urine Source CLEAN C 04/30/18 20:25 Urine Color YELLOW 04/30/18 20:25 Urine Clarity CLEAR (CLEAR) 04/30/18 20:25 Urine pH 6.0 (4.6 - 8.0) 04/30/18 20:25 Ur Specific [place] 1.010 (1.005-1.030) 04/30/18 20:25 Urine Protein TRACE mg/dL (NEGATIVE) 04/30/18 20:25 Urine Glucose (UA) NEGATIVE mg/dL (NEGATIVE) 04/30/18 20:25 Urine Ketones NEGATIVE mg/dL (NEGATIVE) 04/30/18 20:25 Urine Blood NEGATIVE (NEGATIVE) 04/30/18 20:25 Urine Nitrate NEGATIVE (NEGATIVE) 04/30/18 20:25 Urine Bilirubin NEGATIVE (NEGATIVE) 04/30/18 20:25 Urine Urobilinogen 1.0 E.U./dL (0.2 - 1.0) 04/30/18 20:25 Ur Leukocyte Esterase NEGATIVE (NEGATIVE) 04/30/18 20:25 Urine RBC NONE SEEN /hpf (0-5) 04/30/18 20:25 Urine WBC 0-2 /hpf (0-5) 04/30/18 20:25 Ur Epithelial Cells FEW /lpf (FEW) 04/30/18 20:25 Urine Bacteria OCCASIONAL /hpf (NONE SEEN) 04/30/18 20:25 - Physical Exam Vitals and I&O: Vital Signs Temp 96 F 05/02/18 04:00 Pulse 71 05/02/18 04:00 Resp 20 05/02/18 04:00 BP 165/91 05/02/18 04:00 Pulse Ox 96 05/02/18 04:00 Intake & Output 05/01/18 05/02/18 05/02/18 18:59 06:59 18:59 Intake Total 650 1100 Output Total 6 Balance 644 1100 Weight (lbs) 107.365 kg 108.182 kg Intake: Intake, IV Amount 200 1100 D5-0.9NS w/KCL 20mEq 1, 1000 000 ml @ 75 mls/hr IV . [id number] [facility] Rx#:[id number] KCL 20mEq/100mL Premix 20 100 meq In 100 ml @ 50 mls/ hr IV Q2H [facility] Rx#: [id number] metroNIDAZOLE 500mg/NS 100 100 100mL 500 mg In 100 ml @ 100 mls/hr IV Q8HR [facility] Rx #:[id number] Oral 450 Output: Urine 3 Emesis 3 Other: # Bowel Movements 1 Weight Source Estimated Bedscale Active Medications: Current Medications Potassium Chloride/Dextrose/Sod Cl (D5-0.9ns W/Kcl 20meq) 1,000 mls @ 75 mls/ hr IV .[id number] [facility] Stop: 06/30/18 08:14 Last Admin: 05/02/18 04:12 Dose: 75 mls/hr Levofloxacin (Levaquin Pb) 500 mg in 100 mls @ 100 mls/hr IV Q24HR [facility] Stop: 06/30/18 08:59 Last Admin: 05/01/18 08:54 Dose: 100 mls/hr Metronidazole (Flagyl) 500 mg in 100 mls @ 100 mls/hr IV Q8HR [facility] Stop: 06/30/18 12:59 Last Admin: 05/02/18 04:43 Dose: 100 mls/hr Potassium Chloride (Potassium Chloride) 20 meq in 100 mls @ 50 mls/hr IV Q2H [facility] Stop: 05/02/18 10:44 Last Admin: 05/02/18 07:36 Dose: 50 mls/hr Morphine Sulfate (Morphine) 2 mg IVP Q6H PRN PRN Reason: Abdominal Pain Stop: 06/29/18 22:44 Last Admin: 05/01/18 07:55 Dose: 2 mg Morphine Sulfate (Morphine) 4 mg IVP Q4H PRN PRN Reason: Pain (Moderate) Stop: 06/30/18 12:24 Last Admin: 05/02/18 04:12 Dose: 4 mg Ondansetron HCl (Zofran) 4 mg IV Q4H PRN PRN Reason: Nausea / Vomiting Stop: 06/30/18 15:10 Last Admin: 05/01/18 20:19 Dose: 4 mg Pantoprazole Sodium (Protonix) 40 mg IVP DAILY [facility] Stop: 06/30/18 12:44 Last Admin: 05/01/18 13:21 Dose: 40 mg General: Alert, Oriented x3, No acute distress HEENT: Atraumatic, PERRLA, EOMI Neck: Supple Cardiovascular: Regular rate, Normal S1, Normal S2 Lungs: Clear to auscultation Abdomen: Tender Extremities: no Clubbing, no Cyanosis, no Edema Neurological: Normal gait, Normal speech Assessment/Plan - Assessment Assessment: abd pain LLQ abd pain right hydronephrosis r/o diverticulitis/colitis GERD Elevated LFTs hypokalemia elevated BP nausea - Plan Plan: will keep NPO continue IV fluids IV pain meds zofran iv start flagyl IV and Levoquin IV GI consult CT abd/pelvis pending Josefa 40meq CMP,CBC tomorrow AM
--- NOTE | 2018-05-02 08:34 | Consultation ---
DATE OF CONSULTATION: 05/01/2018 GASTROENTEROLOGY CONSULTATION REQUESTING PHYSICIAN: Nicola Mendoza DO. REASON FOR CONSULTATION: Abdominal pain with nausea and vomiting. HISTORY OF PRESENT ILLNESS: A 32-year-old male with a past heavy alcohol who has cut down quite a bit in the last few years, admitted for 2-week episode of worsening epigastric pain radiating to the mid abdomen associated with nausea and vomiting. He had a similar episode of pain in January for which he was admitted here. CT imaging at that time revealed some changes of his right kidney along with some hydronephrosis. No obvious colitis or diverticulitis was noted. The patient was discharged home on antibiotics at that time. He seemed to do okay for a while, but then his symptoms have recurred. He has on and off constipation and diarrhea. He denies fevers, chills or weight loss. PAST MEDICAL HISTORY: As above. PAST SURGICAL HISTORY: Negative. MEDICATIONS: Here are Levaquin, Flagyl, morphine, Zofran, and IV fluids. ALLERGIES: None. SOCIAL HISTORY: No tobacco, no drugs. Past alcohol, now drinks occasionally and socially. FAMILY HISTORY: Paternal grandfather had colon cancer in his 80s. Maternal grandmother had breast cancer. REVIEW OF SYSTEMS: Negative. PHYSICAL EXAMINATION: VITAL SIGNS: Temperature of 97.0, blood pressure 142/77, pulse of 69, respirations 18, O2 sat 96%. GENERAL: The patient is well-developed, well-nourished, slightly obese male in no acute distress. Girlfriend present at bedside. HEENT: Sclerae nonicteric. Oropharynx is clear. CARDIOVASCULAR: Regular rate and rhythm. LUNGS: Clear to auscultation bilaterally. ABDOMEN: Soft, mildly distended, mildly obese habitus, mild epigastric and mid abdominal tenderness to palpation. EXTREMITIES: No clubbing, cyanosis or edema. RECTAL: Deferred. LABORATORY DATA AND IMAGING: WBC initially of 9.1, down to 6.2 today; hemoglobin 12.8, platelet count 156. Sodium 140, creatinine 1.0, bilirubin 0.8, yesterday was 1.5, AST went from 166 to 136, ALT is 25, alkaline phosphatase 119, albumin 3, lipase mildly elevated at 86. Amylase normal. Urinalysis essentially clear. CT of the abdomen and pelvis done yesterday without contrast shows chronic appearing moderate right-sided hydronephrosis and right renal scarring. There is a probable narrowing of the right UPJ findings similar to prior examination in January, also hepatomegaly with fatty infiltration without evidence of bowel obstruction or abdominal mass. IMPRESSION: 1. Mid and epigastric abdominal pain with nausea and vomiting, rule out gastritis, peptic ulcer disease, gastroesophageal reflux disease, given mild elevation of lipase level. Also, rule out acute on chronic pancreatitis. The patient has history of heavy alcohol in the past and may have a component of alcoholic chronic pancreatitis. His liver enzymes are mildly elevated as well. 2. Chronic right renal changes with possible hydronephrosis without ureteropelvic junction obstruction or narrowing. RECOMMENDATIONS: 1. Upper endoscopy in the morning. 2. May need colonoscopy later on as well, but this can also be done as an outpatient. 3. Protonix. 4. Antiemetics. 5. Clear liquid diet for now with n.p.o. after midnight. 6. Continue antibiotics, but doubt colitis or diverticulitis. 7. Pain control measures. 8. Urology followup, which can be done as an outpatient. Thank you, Dr. Nicola Mendoza for involving us in the care of your patient. If you have any further questions, please call us. JOB# [id number] SIMONE
[2018-05-02] MEDS ORDERED: Probiotic Screen MC PRN (09:36)
--- NOTE | 2018-05-02 10:22 | Diagnostic Imaging Report ---
Abdominal ultrasound HISTORY: Abnormal liver function test The liver is enlarged. No focal lesions. The exam demonstrates low-level intraluminal echoes within the gallbladder. Findings questionable significance. No discrete calculi are defined. No biliary dilatation. The pancreas cannot be seen due to bowel gas. The right kidney is increased in size. This is associated with relatively severe dilatation of the collecting system (hydronephrosis). The findings correspond to chronic changes noted on prior CT scans of 720 01/29 and 04/30/2018. As noted, findings suggest chronic UPJ obstruction. The left kidney is slightly increased in size no focal lesions or hydronephrosis. The spleen is normal in size. No other retroperitoneal or intra-abdominal abnormalities. IMPRESSION: 1. Hepatomegaly 2. Relatively severe chronic hydronephrosis involving the right renal collecting system as previously documented on earlier CT scans. Changes may be related to chronic UPJ obstruction. 3. Low-level intraluminal echoes within the gallbladder. Significance and etiology uncertain. No discrete calculi are seen.
[2018-05-02] MEDS ORDERED: Lactobacillus Rhamnosus GG 15 Billion CFU CAP.SPRINK PO SCH (12:00)
[2018-05-02] MEDS: Levofloxacin 500mg/100mL 500 MG/100 ML BAG IV SCH (13:33)
[2018-05-02 15:47] LABS: ANION GAP 13.7 (7.0-16.0); BUN - UREA NITROGEN 3 mg/dL (7-25); CALCIUM SERUM 8.9 mg/dL (8.6-10.3); CARBON DIOXIDE 25.8 mEq/L (21.0-31.0); CHLORIDE 101 mEq/L (98-107); CREATININE - SERUM 0.9 mg/dL (0.7-1.3); GFR AFRICAN-AMERICAN > 60.0 ml/min (>90); GFR NON AFRICAN-AMERICAN > 60.0 ml/min; GLUCOSE 99 mg/dL (70-105); POTASSIUM SERUM 3.5 mEq/L (3.5-5.1); SODIUM SERUM 137 mEq/L (136-145)
--- NOTE | 2018-05-02 17:32 | Operative Report ---
DATE OF SURGERY: 05/02/2018 PROCEDURE: Esophagogastroduodenoscopy with biopsy. PREOPERATIVE DIAGNOSIS: Left upper quadrant abdominal pain. POSTOPERATIVE DIAGNOSES: 1. Normal esophagus. 2. Small hiatal hernia. 3. Mild gastritis, status post biopsy and CLOtest. 4. Normal duodenum, status post biopsies to rule out celiac disease. INDICATIONS: A 32-year-old male with alcoholism and mild obesity, undergoing an upper endoscopy for evaluation of epigastric and left upper quadrant abdominal pain. CT and ultrasound showed chronic hydronephrosis on the right side with right renal collecting system dilation, perhaps due to chronic UPJ obstruction. CONSENT: Informed consent was obtained from the patient prior to procedure after explanation of risks, benefits, and alternatives including but not limited to infection, bleeding, perforation, and . SEDATION: Monitored anesthesia care per Dr. Patrick. DESCRIPTION OF PROCEDURE AND FINDINGS: The procedure took place as an inpatient in the GI suite of [facility]. The patient was kept in a left lateral decubitus position. Adequate sedation was achieved by Dr. Patrick. An Olympus diagnostic upper endoscope was advanced via the patient's mouth and into the esophagus. The esophagus appeared normal at about 38 cm from the gums. No esophagitis, stricture, or mass lesions were identified here. Retroflexion in the stomach revealed a small hiatal hernia; no GE junction mass or varices were identified. Mild gastritis was identified in the antrum and body. Biopsies were obtained for CLOtest as well as pathology. No ulcers or mass lesions were identified here. The pyloric channel and duodenum up to second portion appeared normal. Random biopsies were obtained from the second portion to rule out celiac disease. The scope was then withdrawn from the patient. The patient tolerated the procedure well and no complications are anticipated. RECOMMENDATIONS: 1. Protonix. 2. Oral diet as tolerated. 3. Urology followup for right hydronephrosis. 4. The patient will be continued on antibiotics for possible diverticulitis or colitis, although the CT does not show this. 5. Can consider colonoscopy later on, which can be done as an outpatient as well. 6. Disposition as per hospitalist once the patient's symptoms have improved. Thank you Dr. Nicola Mendoza for involving us in the care of this patient. If you have any further questions, please call us. JOB# [id number] [email or web address]
--- NOTE | 2018-05-02 18:06 | Consultation ---
DATE OF CONSULTATION: UROLOGY CONSULTATION REASON FOR CONSULTATION: Seen for right hydronephrosis. HISTORY OF PRESENT ILLNESS: The patient is a 32-year-old was admitted with nausea, vomiting, abdominal pain, left upper and lower quadrant and reduced appetite. He was here with similar problems in January along with additional diarrhea as well and was diagnosed and treated as colitis and sent home. Additionally, at that time, he was diagnosed with right chronic hydronephrosis and on this admission again the same studies, namely ultrasound and CT showed chronic right hydronephrosis. The patient has no symptoms or awareness of this until this last January and no pain. He has had no symptoms related to the kidney in terms of flank pain, difficulty urinating, urinary tract infections, or hematuria for his entire life. However, from the imaging studies, it seems as though this may be a congenital UPJ obstruction that requires further evaluation. PAST SURGICAL HISTORY: Negative. PAST MEDICAL HISTORY: As enumerated with GI problems, most likely chronic constipation and now newly diagnosed gastritis and gastroesophageal reflux. He also is obese. Has no history of hypertension or diabetes so far. ALLERGIES: None. HOME MEDICATIONS: None. REVIEW OF SYSTEMS: GI symptoms only as mentioned. No dysuria or hematuria. Denied headache or seizures. No chest pain, coughing, or shortness of breath. No skin or joint problems. PHYSICAL EXAMINATION: GENERAL: On exam, he is awake, alert, oriented as a return from an upper GI exam. VITAL SIGNS: His BMI is 37.4. He is weight is 108 kilos. Temperature 96, heart rate 71, blood pressure 165/91. He has tattoos all over his body. ABDOMEN: Obese, soft with deep tenderness in the left upper quadrant. Flanks mildly tender right flank on percussion. No masses or hernia. GENITALIA: Normal male. No scrotal masses. Penis uncircumcised. Meatus adequate. RECTAL: Deferred. EXTREMITIES: No edema or lymphadenopathy. NEUROLOGIC: Nonfocal. Moves all 4 limbs. HEAD AND NECK: Normocephalic. Trachea central. Pupils equal and reactive. No jaundice. Thyroid and lymph nodes not palpable. Carotid bruit absent. CHEST: Symmetrical. LUNGS: Clear. No rales or rhonchi. HEART: Sounds normal in sinus rhythm, no murmurs. LABORATORY DATA: White count 6.1 and has been normal since admission; hemoglobin 13.6, also stable; and platelets normal. PT/INR 1.2. Electrolytes unremarkable. BUN 5 and creatinine 0.9. Liver functions, bilirubin elevated to 2.4 today and 1.5 on admission. AST also elevated to 151. Urinalysis unremarkable and normal. A CT of the abdomen and pelvis without contrast shows hepatomegaly and fatty infiltration. Moderate hydronephrosis and possibly right UPJ obstruction with right renal scarring, no stones, no bowel obstruction, no evidence of colitis. Ultrasound confirms the same. IMPRESSION: 1. Chronic right hydronephrosis, this is asymptomatic, so far. Recommended urologic evaluation electively with retrograde pyelogram and determination whether the patient requires a UPJ repair or observation or a nephrectomy. He may require a fractional functional assessment of the kidneys as well. 2. Chronic constipation requires dietary modifications. I explained to the patient and his partner in great details. 3. Newly diagnosed gastritis with reflux requires GI recommendations. 4. Obesity. Needs long-term diet and exercise program. [facility]# [id number]
[2018-05-03 12:11] LABS: HEP A AB IGM Negative (Negative); HEP B CORE IGM Negative (Negative); HEP B SURFACE AG QL Negative (Negative); HEP C ANTIBODY >11.0 s/co ratio (0.0-0.9)
--- NOTE | 2018-05-05 15:56 | Pathology Report ---
[id number] Collection date: 05/02/2018 Surgeon: Dr. Delores Holguin Specimen Description: 1. Duodenum biopsy 2. Antrum biopsy Gross Description: Part I: Received in formalin are three greco soft tissue fragments ranging from 0.1 to 0.2 cm in greatest dimension. Totally submitted in one cassette labeled A. Gross Description: Part II: Received in formalin are two greco soft tissue fragments ranging from 0.1 to 0.2 cm in greatest dimension. Totally submitted in one cassette labeled B. Microscopic Description: Part I: The histologic sections show duodenal mucosa with intact intestinal villi present, showing no evidence for villous abnormality. Diagnosis: Part I: No evidence for celiac disease / sprue (duodenal biopsy). Microscopic Description: Part II: The histologic sections show gastric mucosa with chronic inflammation present consisting of increased numbers of lymphocytes and plasma cells. The Warthin-Starry stain shows no evidence for Helicobacter pylori. Diagnosis: Part II: 1. Chronic gastritis, antrum biopsy. 2. There is no evidence for Helicobacter pylori. [facility]# [id number]
== END 2018-05-02 16:10 | disposition home or self-care (01) | DRG 241 ==
LOC: ER 20:15 → MSI 22:15
PROVIDERS: ADMIT Family Medicine; ATTEND Family Medicine
PROC: 0DB98ZX Excision of Duodenum, Via Natural or Artificial Opening Endoscopic, Diagnostic (ICD-10-PCS; principal; 2018-05-02)
PROC: 0DB68ZX Excision of Stomach, Via Natural or Artificial Opening Endoscopic, Diagnostic (ICD-10-PCS; 2018-05-02)
DX: K29.70 Gastritis, unspecified, without bleeding (principal); N13.30 Unspecified hydronephrosis; E87.6 Hypokalemia; I10 Essential (primary) hypertension; K21.9 Gastro-esophageal reflux disease without esophagitis; E66.9 Obesity, unspecified; K44.9 Diaphragmatic hernia without obstruction or gangrene; F10.20 Alcohol dependence, uncomplicated; Z83.3 Family history of diabetes mellitus; Z80.3 Family history of malignant neoplasm of breast; Z68.37 Body mass index [BMI] 37.0-37.9, adult
CPT/HCPCS: 36415-UA; 76700-TC; 80048-TC; 80053-TC; 80074-90; 81001-TC; 82150-TC; 82948-90; 83690-TC; 83735-TC; 85025-TC; 85610-TC; 85730-TC; 87338-TC; 90799; 96374; C9113; J1956; J2270; J2405; J3480; J7030

== ENCOUNTER 2018-11-06 10:57 | Emergency (ER) | payer MEDICAID ==
--- NOTE | 2018-11-06 11:55 | ED Physician Chart ---
ED Chief Complaint/HPI - Patient Information Date Seen:: 11/06/18 Time Seen:: 11:30 Chief Complaint:: abdominal pain History of Present Illness:: Patient's had left-sided abdominal pain for several months increased in the last 2 weeks. He has been vomiting in the mornings. He has alternating constipation and diarrhea. He's also had a cough productive of yellow sputum for last 1 month has felt warm. He has had a bleeding lesion on the right shoulder for last 1 week. He said the lesion started as an ingrown hair. He denies there being a "mole" there which he scratched off. Allergies:: Allergies Allergy/AdvReac Type Severity Reaction Status Date / Time No Known Allergies Allergy Verified 11/06/18 11:20 Vitals:: Vital Signs - 8 hr 11/06/18 11:00 Temp 98.3 F HR 112 RR 18 BP 145/81 O2 Sat % 88 Historian:: Patient, Family Member Review:: Nurse's Note Reviewed ED Review of Systems - Review of Systems General/Constitutional: Fever, Other (objective fever) Skin: Skin lesions Head: No headache Eyes: No loss of vision ENT: No earache Neck: No neck pain, No swelling Cardio Vascular: No chest pain, No palpitations Pulmonary: Cough, Sputum GI: Vomiting, Diarrhea, Pain G/U: No dysuria Musculoskeletal: No bone or joint pain, No back pain, No muscle pain Endocrine: No polyuria Psychiatric: No prior psych history Hematopoietic: No bruising Allergic/Immuno: No urticaria Neurological: No syncope ED Past Medical History - Past Medical History Past Medical History: No significant medical hx Family History: Heart disease, Diabetes Melitus Social History: Alcohol, Other (smokes marijuana; drinks 16-20 ounces of vodka per day on the 3 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 During the week he drinks less vodka) Surgical History: None Medication: None Family Medical History - Family Member Mother History Unknown: Yes Maternal Grandmother History Unknown: Yes Hx Family Cancer: Yes (Breast cancer) Father History Unknown: Yes Ethnicity: Living Status: Still Living Hx Family Diabetes: Yes ED Physical Exam - Physical Examination General/Constitutional: Awake, Well-developed, well-nourished Head: Atraumatic Eyes: Lids, conjuctiva normal, PERRL Other Skin comments:: 2 mm bleeding site anteriorly right shoulder; actively oozing blood; no palpable induration or mass ENMT: External ears, nose nl, TM canals nl, Nasal exam nl, Lips, teeth, gums nl Neck: No nuchal rigidity Other Respiratory comments:: 3 out of 4 right basal rales Cardio Vascular: RRR, No murmur, gallop, rubs GI: No organomegaly, No hernia, Normal BS's Other GI comments:: Left-sided abdominal tenderness : No CVA tenderness Extremities: No tenderness or effusion, Normal digits & nails Neuro/Psych: No focal deficits ED Labs/Radiology/EKG Results - Lab Results Results: Laboratory Results WBC 11.0 Th/cmm (4.8-10.8) H 11/06/18 11:55 RBC 3.82 Mil/cmm (4.30-5.70) L 11/06/18 11:55 Hgb 13.0 gm/dL (12-16) 11/06/18 11:55 Hct 39.0 % (41.0-60) L 11/06/18 11:55 MCV 102.1 fl (80-99) H 11/06/18 11:55 MCH 33.9 pg (26.0-30.0) H 11/06/18 11:55 MCHC Differential 33.2 pg (28.0-36.0) 11/06/18 11:55 RDW 15.8 % (11.5-20.0) 11/06/18 11:55 Plt Count 140 Th/cmm (150-400) L 11/06/18 11:55 MPV 9.7 fl 11/06/18 11:55 Neutrophils % 77.8 % (40.0-80.0) 11/06/18 11:55 Lymphocytes % 15.0 % (20.0-50.0) L 11/06/18 11:55 Monocytes % 5.9 % (2.0-10.0) 11/06/18 11:55 Eosinophils % 0.8 % (0.0-5.0) 11/06/18 11:55 Basophils % 0.5 % (0.0-2.0) 11/06/18 11:55 PT 15.1 SECONDS (9.5-11.5) H 11/06/18 11:55 INR 1.48 (0.5-1.4) H 11/06/18 11:55 PTT (Actin FS) 33.6 SECONDS (26.0-38.0) 11/06/18 11:55 Sodium 140 mEq/L (136-145) 11/06/18 11:55 Potassium 3.6 mEq/L (3.5-5.1) 11/06/18 11:55 Chloride 102 mEq/L (98-107) 11/06/18 11:55 Carbon Dioxide 24.2 mEq/L (21.0-31.0) 11/06/18 11:55 Anion Gap 17.4 (7.0-16.0) H 11/06/18 11:55 BUN 4 mg/dL (7-25) L 11/06/18 11:55 Creatinine 0.5 mg/dL (0.7-1.3) L 11/06/18 11:55 Est GFR ( Amer) > 60.0 ml/min (>90) 11/06/18 11:55 Est GFR (Non-Af Amer) > 60.0 ml/min 11/06/18 11:55 BUN/Creatinine Ratio 8.0 11/06/18 11:55 Glucose 103 mg/dL (70-105) 11/06/18 11:55 Calcium 8.5 mg/dL (8.6-10.3) L 11/06/18 11:55 Total Bilirubin 2.9 mg/dL (0.3-1.0) H 11/06/18 11:55 AST 442 U/L (13-39) H 11/06/18 11:55 ALT 22 U/L (7-52) 11/06/18 11:55 Alkaline Phosphatase 155 U/L (34-104) H 11/06/18 11:55 Total Protein 7.9 gm/dL (6.0-8.3) 11/06/18 11:55 Albumin 3.2 gm/dL (4.2-5.5) L 11/06/18 11:55 Globulin 4.7 gm/dL 11/06/18 11:55 Albumin/Globulin Ratio 0.7 (1.0-1.8) L 11/06/18 11:55 Lipase 207 U/L (11-82) H 11/06/18 11:55 Urine Source RANDOM 11/06/18 11:45 Urine Color YELLOW 11/06/18 11:45 Urine Clarity CLEAR (CLEAR) 11/06/18 11:45 Urine pH 6.5 (4.6 - 8.0) 11/06/18 11:45 Ur Specific [place] <= 1.005 (1.005-1.030) 11/06/18 11:45 Urine Protein 100 mg/dL (NEGATIVE) H 11/06/18 11:45 Urine Glucose (UA) NEGATIVE mg/dL (NEGATIVE) 11/06/18 11:45 Urine Ketones NEGATIVE mg/dL (NEGATIVE) 11/06/18 11:45 Urine Blood MODERATE (NEGATIVE) H 11/06/18 11:45 Urine Nitrate NEGATIVE (NEGATIVE) 11/06/18 11:45 Urine Bilirubin SMALL (NEGATIVE) H 11/06/18 11:45 Urine Urobilinogen 0.2 E.U./dL (0.2 - 1.0) 11/06/18 11:45 Ur Leukocyte Esterase NEGATIVE (NEGATIVE) 11/06/18 11:45 Urine RBC 0-2 /hpf (0-5) H 11/06/18 11:45 Urine WBC 0-2 /hpf (0-5) 11/06/18 11:45 Ur Epithelial Cells NONE SEEN /lpf (FEW) 11/06/18 11:45 Urine Bacteria FEW /hpf (NONE SEEN) 11/06/18 11:45 Ethyl Alcohol 377 mg/dL (0-10) H 11/06/18 11:55 ED Assessment - Assessment General Assessment: Likely reason that patient had the continued bleeding of the right shoulder lesion was from decreased production of clotting factors by the liver due to liver damage (probable cirrhosis) from heavy alcohol consumption. Both the patient's pro time and INR are elevated. I told the patient he must follow-up with a information security engineer to make sure he does not have a malignant melanoma at the site of the bleeding. Initially portable chest x-ray was done which was suggestive of basilar atelectasis versus infiltrate. Upright PA chest x-ray was done that was still showed the possibility of a slight left basilar infiltrate as read by the radiologist so the patient will be prescribed a Z-Alfredo. - Procedures Procedures:: Right shoulder: Skin cleansed with betadine solution; 1% Xylocaine for local anesthesia; 5-0 chromic one interrupted and 3 running sutures to close the bleeding site; suturing stop the bleeding ED Septic Shock - . Is Septic Shock (SBP<90, OR Lactate>4 mmol\\L) present?: No - <6hrs of presentation: Vital Signs: Vital Signs - 8 hr 11/06/18 11:00 Temp 98.3 F HR 112 RR 18 BP 145/81 O2 Sat % 88 ED Reassessment (Disposition) - Diagnosis Diagnosis:: Acute alcohol intoxication; acute and chronic alcohol abuse; hyperprothrombinemia; bleeding lesion right shoulder; possible pneumonia left base - Aftercare/Follow up Instructions Aftercare/Follow-Up Instructions:: Refer to Discharge Instructions - Patient Disposition Discharge/Transfer:: Home Condition at Disposition:: Stable, Unchanged
[2018-11-06 12:08] LABS: URINE SOURCE RANDOM
[2018-11-06 12:10] LABS: % BASOPHILS 0.5 % (0.0-2.0); % EOSINOPHILS 0.8 % (0.0-5.0); % MONOCYTES 5.9 % (2.0-10.0); % NEUTROPHILS 77.8 % (40.0-80.0); BASOPHILE ABSOLUTE 0.1 Th/cumm (0-0.2); EOSINOPHILE ABSOLUTE 0.1 Th/cmm (0.1-0.4); LYMPHOCYTE ABSOLUTE 1.7 Th/cmm (1.5-3.0); MEAN CELL VOLUME 102.1 fl (80-99); MEAN CORPUSCULAR HEMOGLOBIN 33.9 pg (26.0-30.0); MEAN CORPUSCULAR HGB CONC 33.2 pg (28.0-36.0); MEAN PLATELET VOLUME 9.7 fl; MONOCYTE ABSOLUTE 0.6 Th/cmm (0.3-1.0); NEUTROPHILE ABSOLUTE 8.5 Th/cmm (1.8-8.0); PLATELET COUNT 140 Th/cmm (150-400); RED BLOOD COUNT 3.82 Mil/cmm (4.30-5.70); RED CELL DISTRIBUTION WIDTH 15.8 % (11.5-20.0)
[2018-11-06 12:15] LABS: URINE BILIRUBIN SMALL (NEGATIVE); URINE BLOOD MODERATE (NEGATIVE); URINE GLUCOSE (UA) NEGATIVE (NEGATIVE); URINE KETONE NEGATIVE (NEGATIVE); URINE LEUKOCYTE ESTERASE NEGATIVE (NEGATIVE); URINE MICROSCOPIC INDICATED? YES; URINE NITRATE NEGATIVE (NEGATIVE); URINE PH 6.5 (4.6 - 8.0); URINE PROTEIN 100 mg/dL (NEGATIVE); URINE UROBILINOGEN 0.2 E.U./dL (0.2 - 1.0)
[2018-11-06 12:17] LABS: URINE CLARITY CLEAR (CLEAR); URINE COLOR YELLOW
[2018-11-06 12:19] LABS: INR 1.48 (0.5-1.4); PROTHROMBIN TIME (TEST) 15.1 SECONDS (9.5-11.5)
[2018-11-06 12:25] LABS: ALB/GLOB RATIO 0.7 (1.0-1.8); ALBUMIN 3.2 gm/dL (4.2-5.5); ALKALINE PHOSPHATASE 155 U/L (34-104); ANION GAP 17.4 (7.0-16.0); BILIRUBIN,TOTAL 2.9 mg/dL (0.3-1.0); BUN - UREA NITROGEN 4 mg/dL (7-25); CALCIUM SERUM 8.5 mg/dL (8.6-10.3); CARBON DIOXIDE 24.2 mEq/L (21.0-31.0); CHLORIDE 102 mEq/L (98-107); CREATININE - SERUM 0.5 mg/dL (0.7-1.3); GFR AFRICAN-AMERICAN > 60.0 ml/min (>90); GFR NON AFRICAN-AMERICAN > 60.0 ml/min; GLUCOSE 103 mg/dL (70-105); LIPASE 207 U/L (11-82); POTASSIUM SERUM 3.6 mEq/L (3.5-5.1); SGOT 442 U/L (13-39); SGPT/ALT 22 U/L (7-52); SODIUM SERUM 140 mEq/L (136-145); TOTAL PROTEIN,SERUM 7.9 gm/dL (6.0-8.3)
--- NOTE | 2018-11-06 12:36 | Diagnostic Imaging Report ---
CHEST X-RAY: 2 views INDICATION: Productive cough COMPARISON: None FINDINGS: There is elevation of the right hemidiaphragm. Low lung volumes are seen with mild increased bibasilar lung markings. There is no focal consolidation or pleural effusions The heart is at the upper limits of in size. The osseous structures demonstrate no acute abnormalities. IMPRESSION: Low lung volume is increased bibasilar lung markings likely due to atelectasis. Faint Infiltrate of the lung bases is considered less likely, however, clinical correlation is recommended. If indicated, follow-up exam with improved inspiration is recommended.
[2018-11-06 12:38] LABS: URINE RBC 0-2 /hpf (0-5); URINE WBC 0-2 /hpf (0-5)
[2018-11-06 12:44] LABS: URINE BACTERIA FEW /hpf (NONE SEEN); URINE EPITHELIAL CELLS NONE SEEN /lpf (FEW)
--- NOTE | 2018-11-06 13:08 | Diagnostic Imaging Report ---
CHEST X-RAY: 2 views INDICATION: Productive cough COMPARISON: Chest x-ray performed earlier the same day FINDINGS: There is improved inspiration. Slight increased bibasilar lung markings are noted. There is no focal consolidation or pleural effusions The heart is normal in size. The osseous structures demonstrate no acute abnormalities. IMPRESSION: Improved inspiration. Slight increased bibasilar lung markings are noted. Faint infiltrate of the left base cannot be completely excluded. Correlate clinically.
== END 2018-11-06 14:10 | disposition home or self-care (01) ==
LOC: ER 10:57
DX: F10.129 Alcohol abuse with intoxication, unspecified (principal); D68.4 Acquired coagulation factor deficiency; M75.81 Other shoulder lesions, right shoulder; E11.9 Type 2 diabetes mellitus without complications
CPT/HCPCS: 36415-UA; 71046-TC; 80053-TC; 80320-TC; 81001-TC; 83690-TC; 85025-TC; 85610-TC; 85730-TC; 87086-90; Z7610

== ENCOUNTER 2018-11-24 18:15 | Inpatient (IN) | payer MEDICAID ==
--- NOTE | 2018-11-24 19:04 | ED Physician Chart ---
ED Chief Complaint/HPI - Patient Information Date Seen:: 11/24/18 Time Seen:: 18:30 Chief Complaint:: Abdominal Pain History of Present Illness:: onset x 3 days of intermittent, crampy Abdominal Pain, N/V/D; pt denies trauma, H/As, S/T, neck pain, C/P, SOB, A/C, fever, chills, GI bleeding, or urinary s/s ; pt admits to epistaxis one hour [place]ANNY Allergies:: Allergies Allergy/AdvReac Type Severity Reaction Status Date / Time No Known Allergies Allergy Verified 11/06/18 11:20 Vitals:: Vital Signs - 8 hr 11/24/18 18:31 Temp 98.7 F HR 114 RR 20 BP 148/92 O2 Sat % 93 Historian:: Patient, Family Member Review:: Nurse's Note Reviewed, Old Chart Reviewed ED Review of Systems - Review of Systems General/Constitutional: No fever, No chills, No weight loss, No weakness, No diaphoresis, No edema, No loss of appetite Skin: No skin lesions, No rash, No bruising Head: No headache, No light-headedness Eyes: No loss of vision, No pain, No diplopia ENT: No earache, No nasal drainage, No sore throat, No tinnitus Neck: No neck pain, No swelling, No thyromegaly, No stiffness, No mass noted Cardio Vascular: No chest pain, No palpitations, No PND, No orthopnea, No edema Pulmonary: No SOB, No cough, No sputum, No wheezing GI: Nausea, Vomiting, Diarrhea, Pain, No melena, No hematochezia, No constipation, No hematemesis G/U: No dysuria, No frequency, No hematuria Musculoskeletal: No bone or joint pain, No back pain, No muscle pain Endocrine: No polyuria, No polydipsia Psychiatric: No prior psych history, No depression, No anxiety, No suicidal ideation Hematopoietic: No bruising, No lymphadenopathy Allergic/Immuno: No urticaria, No angioedema Neurological: No syncope, No focal symptoms, No weakness, No paresthesia, No headache, No seizure, No dizziness, No confusion, No vertigo ED Past Medical History - Past Medical History Obtainable: Yes Past Medical History: HTN Family History: HTN Social History: Smoker, Alcohol, No Drug Use, Surgical History: None Psychiatricy History: None Medication: Reviewed Family Medical History - Family Member Mother History Unknown: Yes Maternal Grandmother History Unknown: Yes Hx Family Cancer: Yes (Breast cancer) Father History Unknown: Yes Ethnicity: Living Status: Still Living Hx Family Diabetes: Yes ED Physical Exam - Physical Examination General/Constitutional: Awake, Well-developed, well-nourished, Alert, No distress, GCS 15, Non-toxic appearing, Ambulatory Head: Atraumatic Eyes: Lids, conjuctiva normal, PERRL, EOMI Skin: Nl inspection, No rash, No skin lesions, No ecchymosis, Well hydrated, No lymphadenopathy ENMT: External ears, nose nl, TM canals nl, Nasal exam nl, Lips, teeth, gums nl , Oropharynx nl, Tonsils nl Neck: Nontender, Full ROM w/o pain, No JVD, No nuchal rigidity, No bruit, No mass, No stridor Respiratory: Nl effort/Exclusion, Clear to Auscultation, No Wheeze/Rhonchi/Rales Cardio Vascular: RRR, No murmur, gallop, rubs, NL S1 S2 GI: No organomegaly, No hernia, Normal BS's, Nondistended, No mass/bruits, No McBurney tenderness Other GI comments:: + Abdominal Tenderness and Distention : No CVA tenderness Extremities: No tenderness or effusion, Full ROM, normal strength in all extremities, No edema, Normal digits & nails Neuro/Psych: Alert/oriented, DTR's symmetric, Normal sensory exam, Normal motor strength, Judgement/insight normal, Mood normal, Normal gait, No focal deficits Misc: Normal back, No paraspinal tenderness ED Septic Shock - <6hrs of presentation: Vital Signs: Vital Signs - 8 hr 11/24/18 18:31 Temp 98.7 F HR 114 RR 20 BP 148/92 O2 Sat % 93
--- NOTE | 2018-11-24 19:22 | ED Physician Chart ---
ED Chief Complaint/HPI - Patient Information Date Seen:: 11/24/18 Time Seen:: 19:05 Chief Complaint:: Abdominal pain History of Present Illness:: Pt was evaluated by me immediately upon my arrival for my evening shift at about 1900. Pt came in by private auto because of abdominal pain for a month. Pain is characterized as intermittent, sharp, and localized primarily at LUQ. Pt reportedly was admitted to a hospital and had work up that included upper endoscopy. Pt reportedly was shown to have acute gastritis. No fever. Transient nausea/vomiting this morning with vomitus consists of gastric content. No hematemesis. Last BM this morning that was normal in color/consistency. No hematochezia or melena. No gross hematuria. No dysuria, urinary frequency or urgency. Allergies:: Allergies Allergy/AdvReac Type Severity Reaction Status Date / Time No Known Allergies Allergy Verified 11/06/18 11:20 Vitals:: Vital Signs - 8 hr 11/24/18 18:31 Temp 98.7 F HR 114 RR 20 BP 148/92 O2 Sat % 93 Historian:: Patient Family MD/PCP:: unknown LMP:: N/A Review:: Nurse's Note Reviewed ED Review of Systems - Review of Systems General/Constitutional: No fever, No chills, No weight loss, No weakness, No edema, No loss of appetite Skin: No skin lesions, No rash, No bruising Head: No headache, No light-headedness Eyes: No loss of vision, No pain, No diplopia ENT: No earache, No nasal drainage, No sore throat, Other (Pt has nose bleed today.) Neck: No neck pain, No swelling, No thyromegaly, No stiffness Cardio Vascular: No chest pain Pulmonary: No SOB, No cough, No wheezing GI: Nausea, Vomiting (transient), No diarrhea, Pain, No melena, No hematochezia , No constipation G/U: No dysuria, No frequency, No hematuria Musculoskeletal: No bone or joint pain, No back pain Endocrine: No polyuria, No polydipsia Psychiatric: No prior psych history, No depression Hematopoietic: No bruising, No lymphadenopathy Allergic/Immuno: No urticaria, No angioedema Neurological: No syncope, No focal symptoms, No weakness, No paresthesia, No headache, No confusion ED Past Medical History - Past Medical History Past Medical History: Other (gastritis) Family History: Diabetes Melitus (in father.) Social History: Non Smoker, No Alcohol, No Drug Use, Single, Employed, Other ( lives with a friend.) 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 Surgical History: None Psychiatricy History: None Medication: Reviewed Family Medical History - Family Member Mother History Unknown: Yes Maternal Grandmother History Unknown: Yes Hx Family Cancer: Yes (Breast cancer) Father History Unknown: Yes Ethnicity: Living Status: Still Living Hx Family Diabetes: Yes ED Physical Exam - Physical Examination General/Constitutional: Awake, Well-developed, well-nourished (male), Alert, Non -toxic appearing Other Gen/Cons comments:: Breathes comfortably, speaks clearly, and interacts appropriately. Pt is in abdominal pain. Head: Atraumatic Eyes: Lids, conjuctiva normal, PERRL, EOMI Skin: No rash, No ecchymosis, No lymphadenopathy ENMT: Lips, teeth, gums nl, Oropharynx nl Other ENMT comments:: Nose shows trace dry blood in R nasal passage; otherwise, unremarkable. Neck: Nontender, Full ROM w/o pain, No nuchal rigidity, No mass Respiratory: Nl effort/Exclusion, Clear to Auscultation, No Wheeze/Rhonchi/Rales Cardio Vascular: RRR, No murmur, gallop, rubs GI: No organomegaly, Normal BS's, Nondistended, No mass/bruits, No McBurney tenderness Other GI comments:: Obese but soft. Tenderness at LUQ. No R/G. Negative Acosta's, Aguirre-Godinez's, and Clifton's signs. : No CVA tenderness Extremities: No tenderness or effusion, normal strength in all extremities, No edema Neuro/Psych: Alert/oriented (oriented x 3. ), No focal deficits ED Labs/Radiology/EKG Results - Lab Results Results: Laboratory Results - last 24 hr 11/24/18 11/24/18 11/24/18 19:50 19:50 19:50 WBC 11.5 H RBC 3.79 L Hgb 12.9 Hct 38.9 L MCV 102.6 H MCH 34.0 H MCHC Differential 33.2 RDW 16.2 Plt Count 108 L MPV 10.5 Neutrophils % 78.8 Lymphocytes % 14.6 L Monocytes % 6.0 Eosinophils % 0.6 Basophils % 0.0 PT 15.3 H INR 1.50 H PTT (Actin FS) 35.0 Sodium 137 Potassium 3.3 L Chloride 98 Carbon Dioxide 26.3 Anion Gap 16.0 BUN 4 L Creatinine 0.6 L Est GFR ( Amer) > 60.0 Est GFR (Non-Af Amer) > 60.0 BUN/Creatinine Ratio 6.7 Glucose 105 Calcium 8.6 Total Bilirubin 4.5 H AST 466 H ALT 28 Alkaline Phosphatase 150 H Total Protein 8.3 Albumin 3.1 L Globulin 5.2 Albumin/Globulin Ratio 0.6 L Amylase 112 H Lipase 268 H Urine Source Urine Color Urine Clarity Urine pH Ur Specific [place] Urine Protein Urine Glucose (UA) Urine Ketones Urine Blood Urine Nitrate Urine Bilirubin Urine Ictotest Urine Urobilinogen Ur Leukocyte Esterase Urine RBC Urine WBC Ur Epithelial Cells Urine Bacteria 11/24/18 20:04 WBC RBC Hgb Hct MCV MCH MCHC Differential RDW Plt Count MPV Neutrophils % Lymphocytes % Monocytes % Eosinophils % Basophils % PT INR PTT (Actin FS) Sodium Potassium Chloride Carbon Dioxide Anion Gap BUN Creatinine Est GFR ( Amer) Est GFR (Non-Af Amer) BUN/Creatinine Ratio Glucose Calcium Total Bilirubin AST ALT Alkaline Phosphatase Total Protein Albumin Globulin Albumin/Globulin Ratio Amylase Lipase Urine Source CLEAN C Urine Color YELLOW Urine Clarity BLOODY Urine pH 6.5 Ur Specific [place] 1.020 Urine Protein >=300 Urine Glucose (UA) NEGATIVE Urine Ketones NEGATIVE Urine Blood LARGE H Urine Nitrate NEGATIVE Urine Bilirubin LARGE H Urine Ictotest NEGATIVE Urine Urobilinogen 2.0 Ur Leukocyte Esterase NEGATIVE Urine RBC 25-50 H Urine WBC 10-25 H Ur Epithelial Cells NONE SEEN Urine Bacteria MODERATE H Pending lab result to be followed by admitting attending physician Dr. Garrido : urine culture. - Radiology Results Results: CT of abdomen/pelvis with contrast: Hepatomegaly with fatty infiltration. Small amount diffuse ascities. Atrophic right kidney with chronic hydro.. Extensive abnormal changes RLQ with obscuration of bowel margins. Exact etiology uncertain. Inflammatory or neoplastic process cannot be r/o. Official report per Dr. Kurt Del Toro, radiologist. ED Septic Shock - . Is Septic Shock (SBP<90, OR Lactate>4 mmol\L) present?: No - <6hrs of presentation: Vital Signs: Vital Signs - 8 hr 11/24/18 18:31 Temp 98.7 F HR 114 RR 20 BP 148/92 O2 Sat % 93 ED Reassessment (Disposition) - Reassessment Reassessment:: 2134 Pt has been repeatedly evaluated. Pt is stable and now comfortable. Pt does not need more pain control at the present. CT report just became available. Lab and CT findings have been reviewed with pt. Management plan has been discussed. 2223 Case was discussed with Dr. Garrido with pertinent info reviewed. Pt is to be admitted to [facility] under his care. Reassessment Condition:: Improved - Diagnosis Diagnosis:: Abdominal pain with ascites, chronic right hydronephrosis, extensive changes per CT findings. Pt has elevated AST, amylase and lipase, coagulopathy. Urinary tract infection. Mild hypokalemia. Transient spontaneous epitaxis. Resolved. - Patient Disposition Admitted to:: Med/Surg Admitting Medical Physician:: Matteo Garrido Time:: 22:25 Condition at Disposition:: Stable, Improved
[2018-11-24] MEDS ORDERED: HYDROmorphone 1 mg/mL 1mL Syr IVP STA (19:32)
[2018-11-24] MEDS ORDERED: HYDROmorphone 1 mg/mL 1mL Syr ONE (19:50)
[2018-11-24 19:54] LABS: % EOSINOPHILS 0.6 % (0.0-5.0); % LYMPHOCYTES 14.6 % (20.0-50.0); % NEUTROPHILS 78.8 % (40.0-80.0); EOSINOPHILE ABSOLUTE 0.1 Th/cmm (0.1-0.4); HEMATOCRIT 38.9 % (41.0-60); HEMOGLOBIN 12.9 gm/dL (12-16); LYMPHOCYTE ABSOLUTE 1.7 Th/cmm (1.5-3.0); MEAN CELL VOLUME 102.6 fl (80-99); MEAN CORPUSCULAR HGB CONC 33.2 pg (28.0-36.0); MEAN PLATELET VOLUME 10.5 fl; MONOCYTE ABSOLUTE 0.7 Th/cmm (0.3-1.0); PLATELET COUNT 108 Th/cmm (150-400); RED BLOOD COUNT 3.79 Mil/cmm (4.30-5.70); RED CELL DISTRIBUTION WIDTH 16.2 % (11.5-20.0); WHITE BLOOD COUNT 11.5 Th/cmm (4.8-10.8)
[2018-11-24] MEDS ORDERED: IOHEXOL 300mgI/mL 100 ML VIAL ONE (20:02)
[2018-11-24 20:11] LABS: INR 1.5 (0.5-1.4); PROTHROMBIN TIME (TEST) 15.3 SECONDS (9.5-11.5)
[2018-11-24 20:14] LABS: URINE SOURCE CLEAN C
[2018-11-24 20:16] LABS: URINE BILIRUBIN LARGE (NEGATIVE); URINE BLOOD LARGE (NEGATIVE); URINE GLUCOSE (UA) NEGATIVE (NEGATIVE); URINE KETONE NEGATIVE (NEGATIVE); URINE LEUKOCYTE ESTERASE NEGATIVE (NEGATIVE); URINE MICROSCOPIC INDICATED? YES; URINE NITRATE NEGATIVE (NEGATIVE); URINE PH 6.5 (4.6 - 8.0); URINE PROTEIN >=300 mg/dL (NEGATIVE)
[2018-11-24 20:16] LABS: ALB/GLOB RATIO 0.6 (1.0-1.8); ALBUMIN 3.1 gm/dL (4.2-5.5); ALKALINE PHOSPHATASE 150 U/L (34-104); AMYLASE SERUM 112 U/L (29-103); BILIRUBIN,TOTAL 4.5 mg/dL (0.3-1.0); BUN - UREA NITROGEN 4 mg/dL (7-25); CALCIUM SERUM 8.6 mg/dL (8.6-10.3); CARBON DIOXIDE 26.3 mEq/L (21.0-31.0); CHLORIDE 98 mEq/L (98-107); CREATININE - SERUM 0.6 mg/dL (0.7-1.3); GFR AFRICAN-AMERICAN > 60.0 ml/min (>90); GFR NON AFRICAN-AMERICAN > 60.0 ml/min; GLUCOSE 105 mg/dL (70-105); LIPASE 268 U/L (11-82); POTASSIUM SERUM 3.3 mEq/L (3.5-5.1); SGOT 466 U/L (13-39); SGPT/ALT 28 U/L (7-52); SODIUM SERUM 137 mEq/L (136-145); TOTAL PROTEIN,SERUM 8.3 gm/dL (6.0-8.3)
[2018-11-24 20:41] LABS: URINE CLARITY BLOODY (CLEAR); URINE COLOR YELLOW
[2018-11-24 20:43] LABS: URINE BACTERIA MODERATE /hpf (NONE SEEN); URINE EPITHELIAL CELLS NONE SEEN /lpf (FEW)
[2018-11-24 20:44] LABS: URINE RBC 25-50 /hpf (0-5)
[2018-11-24 20:53] LABS: URINE ICTOTEST NEGATIVE (NEGATIVE)
[2018-11-24] MEDS ORDERED: Potassium Chloride 20 mEq ER Tab PO ONE ×2 (21:10→21:15)
[2018-11-24] MEDS ORDERED: Sulfamethoxazole/TMP 800/160mg Tab PO ONE (21:11)
[2018-11-24] MEDS ORDERED: Sulfamethoxazole/TMP 800/160mg Tab ONE (21:15)
[2018-11-25 00:25] VITALS: BP 157/91
[2018-11-25] MEDS: HYDROmorphone 1 mg/mL 1mL Syr IVP PRN ×4 (00:41→20:28)
[2018-11-25] MEDS: Sodium Chloride 0.9% 1,000 ML IV SCH ×3 (01:02→22:17)
[2018-11-25 08:04] LABS: HEMATOCRIT 36.4 % (41.0-60); HEMOGLOBIN 12.4 gm/dL (12-16); MEAN CELL VOLUME 102.6 fl (80-99); MEAN CORPUSCULAR HEMOGLOBIN 34.8 pg (26.0-30.0); MEAN PLATELET VOLUME 10.5 fl; PLATELET COUNT 102 Th/cmm (150-400); RED BLOOD COUNT 3.55 Mil/cmm (4.30-5.70); RED CELL DISTRIBUTION WIDTH 16.7 % (11.5-20.0); WHITE BLOOD COUNT 10.9 Th/cmm (4.8-10.8)
[2018-11-25 08:15] LABS: ALB/GLOB RATIO 0.6 (1.0-1.8); ALKALINE PHOSPHATASE 131 U/L (34-104); AMYLASE SERUM 126 U/L (29-103); ANION GAP 14.2 (7.0-16.0); BILIRUBIN,TOTAL 4.6 mg/dL (0.3-1.0); BUN - UREA NITROGEN 4 mg/dL (7-25); CALCIUM SERUM 8.3 mg/dL (8.6-10.3); CARBON DIOXIDE 27.6 mEq/L (21.0-31.0); CHLORIDE 99 mEq/L (98-107); CREATININE - SERUM 0.5 mg/dL (0.7-1.3); GFR AFRICAN-AMERICAN > 60.0 ml/min (>90); GFR NON AFRICAN-AMERICAN > 60.0 ml/min; GLUCOSE 96 mg/dL (70-105); LIPASE 210 U/L (11-82); POTASSIUM SERUM 3.8 mEq/L (3.5-5.1); SGOT 434 U/L (13-39); SGPT/ALT 26 U/L (7-52); SODIUM SERUM 137 mEq/L (136-145); TOTAL PROTEIN,SERUM 7.9 gm/dL (6.0-8.3)
[2018-11-25] MEDS ORDERED: cefTRIAXone 1 GM in Sodium Chloride 0.9% 50 ML IV SCH (09:00)
[2018-11-25 10:11] LABS: BAND NEUTROPHILE 0 % (0-10); LYMPHOCYTE 18 % (20-50); MONOCYTE 5 % (2-10); NEUTROPHILS 77 % (40-80)
--- NOTE | 2018-11-25 10:44 | Diagnostic Imaging Report ---
Exam: CT examination of the abdomen pelvis. HISTORY abdominal pain Total DLP equals 864 CTDI equals 16.0 I: Multiple contiguous thin section the abdomen pelvis obtained from lower thorax to pubic symphysis without administration oral contrast material, intravenous contrast was utilized. The study compared to prior exam of 04/30/2018. The study demonstrates normal aeration of lung parenchyma the bases There is evidence for hepatosplenomegaly. Fatty infiltration liver parenchyma. Ascitic fluid in abdomen appreciated The pancreas intact. The gallbladder demonstrates thickening of the gallbladder wall clinical correlation recommended. There is evidence for atrophy right kidney with chronic prominence of the right renal pelvis. The findings of the distended right renal pelvis unchanged compared to prior study 04/30/2018 Extensive abnormal changes the right lower quadrant with obscuration of bowel margins. This might be related to inflammatory changes neoplastic process or edema extending from ascitic fluid throughout the mesentery. Clinical correlation recommended. The urinary bladder is intact. Bony structures demonstrate no evidence of lytic or blastic changes. IMPRESSION: Hepatomegaly, splenomegaly, fatty infiltration liver parenchyma. Ascitic fluid Atrophic right kidney unchanged from prior study 04/30/2018 Abnormal changes throughout the right lower quadrant bowel loops might be due to edema from the mesenteric edema and ascitic fluid. Neoplastic component cannot be excluded clinical correlation recommended.
[2018-11-25] MEDS ORDERED: Multivitamin Tab PO SCH (11:00)
--- NOTE | 2018-11-25 13:48 | History and Physical ---
History of Present Illness - HPI Chief Complaint: Abdominal pain, nausea and vomit. HPI: Patient refer that x one month he has having abdominal distension and pain. Reason why he came to ER. He stated that is a heavy drinker. During ER Evaluation was foung abnormal liver enzimes, abnormal pancreatic enzimes, CT shows fatty liver ascitis and mesenterial edema. Vital Signs: Last Vital Signs Temp 97.1 F 11/25/18 12:18 Pulse 98 11/25/18 12:18 Resp 20 11/25/18 12:18 BP 135/71 11/25/18 12:18 Pulse Ox 92 11/25/18 12:18 Past Medical History Cardiovascular: Report: No Pertinent Hx Pulmonary: Report: No Pertinent Hx [employer]: Report: No Pertinent Hx GI: Report: Gastritis Psych: Report: Anxiety, Addictions Musculoskeletal: Report: No Pertinent Hx Rheumatologic: Report: No pertinent Hx Infectious Disease: Report: No Pertinent Hx Renal/: Report: No Pertinent Hx Endocrine: Report: No Pertinent Hx Dermatology: Report: No Pertinent Hx - Past Surgical History Past Surgical History: No pertinent Hx Family Medical History - Family Member Mother History Unknown: Yes Maternal Grandmother History Unknown: Yes Hx Family Cancer: Yes (Breast cancer) Father History Unknown: Yes Ethnicity: Living Status: Still Living Hx Family Diabetes: Yes Social History Smoke: No Alcohol: Heavy Drugs: Marijuana Lives: With Family Domestic Violence: Negative - Medications Home Medications: Home Medication Medication Instructions Recorded Type NK [No Home Meds] 02/07/18 History Zpack 1 tab PO DAILY #5 11/06/18 Rx - Allergies Allergies/Adverse Reactions: Allergies Allergy/AdvReac Type Severity Reaction Status Date / Time No Known Allergies Allergy Verified 11/06/18 11:20 Review of Systems - Review of Systems Constitutional: Report: Sweats, Weakness Eyes: Report: No Significant ENT: Report: No Significant Respiratory: Report: No Significant Cardiovascular: Report: No Significant Gastrointestinal: Report: Nausea, Vomiting, Abdominal Pain Genitourinary: Report: No Significant Musculoskeletal: Report: No Significant Skin: Report: No Significant Neurological: Report: Weakness Physical Exam - Physical Exam HEENT: Report: Ears Nose Throat within normal limits Neck: Report: Within normal limits Cardiovascular Systems: Report: Regular, Rate and Rhythm Respiratory: Report: Breath Sounds are within normal limits Abdomen: Report: Tender to palpation, Bowel Sounds are within normal limits, Hepatomegaly Noted, Other (Distended) Back: Report: Inspection of back is within normal limits. Extremities: Report: Non-tender to palpation. Skin: Report: Color of skin is within normal limits, Warm, Dry Neuro/Psych: Report: Other (Patient seem anxious, with some tremor. ) - Lab Results All Lab Results last 24 hours: Laboratory Results - last 24 hr 11/24/18 11/24/18 11/24/18 19:50 19:50 19:50 WBC 11.5 H RBC 3.79 L Hgb 12.9 Hct 38.9 L MCV 102.6 H MCH 34.0 H MCHC Differential 33.2 RDW 16.2 Plt Count 108 L MPV 10.5 Add Manual Diff Neutrophils % 78.8 Band Neutrophils % Lymphocytes % 14.6 L Monocytes % 6.0 Eosinophils % 0.6 Basophils % 0.0 Neutrophils (Manual) Lymphocytes Monocytes PT 15.3 H INR 1.50 H PTT (Actin FS) 35.0 Sodium 137 Potassium 3.3 L Chloride 98 Carbon Dioxide 26.3 Anion Gap 16.0 BUN 4 L Creatinine 0.6 L Est GFR ( Amer) > 60.0 Est GFR (Non-Af Amer) > 60.0 BUN/Creatinine Ratio 6.7 Glucose 105 POC Glucose Calcium 8.6 Total Bilirubin 4.5 H AST 466 H ALT 28 Alkaline Phosphatase 150 H Total Protein 8.3 Albumin 3.1 L Globulin 5.2 Albumin/Globulin Ratio 0.6 L Amylase 112 H Lipase 268 H Urine Source Urine Color Urine Clarity Urine pH Ur Specific Drum[place] Urine Protein Urine Glucose (UA) Urine Ketones Urine Blood Urine Nitrate Urine Bilirubin Urine Ictotest Urine Urobilinogen Ur Leukocyte Esterase Urine RBC Urine WBC Ur Epithelial Cells Urine Bacteria 11/24/18 11/24/18 11/25/18 20:04 23:16 07:30 WBC 10.9 H RBC 3.55 L Hgb 12.4 Hct 36.4 L MCV 102.6 H MCH 34.8 H MCHC Differential 34.0 RDW 16.7 Plt Count 102 L MPV 10.5 Add Manual Diff YES Neutrophils % Band Neutrophils % 0 Lymphocytes % Monocytes % Eosinophils % Basophils % Neutrophils (Manual) 77 Lymphocytes 18 L Monocytes 5 PT INR PTT (Actin FS) Sodium Potassium Chloride Carbon Dioxide Anion Gap BUN Creatinine Est GFR ( Amer) Est GFR (Non-Af Amer) BUN/Creatinine Ratio Glucose POC Glucose 97 Calcium Total Bilirubin AST ALT Alkaline Phosphatase Total Protein Albumin Globulin Albumin/Globulin Ratio Amylase Lipase Urine Source CLEAN C Urine Color YELLOW Urine Clarity BLOODY Urine pH 6.5 Ur Specific [place] 1.020 Urine Protein >=300 Urine Glucose (UA) NEGATIVE Urine Ketones NEGATIVE Urine Blood LARGE H Urine Nitrate NEGATIVE Urine Bilirubin LARGE H Urine Ictotest NEGATIVE Urine Urobilinogen 2.0 Ur Leukocyte Esterase NEGATIVE Urine RBC 25-50 H Urine WBC 10-25 H Ur Epithelial Cells NONE SEEN Urine Bacteria MODERATE H 11/25/18 07:30 WBC RBC Hgb Hct MCV MCH MCHC Differential RDW Plt Count MPV Add Manual Diff Neutrophils % Band Neutrophils % Lymphocytes % Monocytes % Eosinophils % Basophils % Neutrophils (Manual) Lymphocytes Monocytes PT INR PTT (Actin FS) Sodium 137 Potassium 3.8 Chloride 99 Carbon Dioxide 27.6 Anion Gap 14.2 BUN 4 L Creatinine 0.5 L Est GFR ( Amer) > 60.0 Est GFR (Non-Af Amer) > 60.0 BUN/Creatinine Ratio 8.0 Glucose 96 POC Glucose Calcium 8.3 L Total Bilirubin 4.6 H AST 434 H ALT 26 Alkaline Phosphatase 131 H Total Protein 7.9 Albumin 3.0 L Globulin 4.9 Albumin/Globulin Ratio 0.6 L Amylase 126 H Lipase 210 H Urine Source Urine Color Urine Clarity Urine pH Ur Specific [place] Urine Protein Urine Glucose (UA) Urine Ketones Urine Blood Urine Nitrate Urine Bilirubin Urine Ictotest Urine Urobilinogen Ur Leukocyte Esterase Urine RBC Urine WBC Ur Epithelial Cells Urine Bacteria - Assessment Assessment: Alcoholwithdraw, Pancreatitis, Fatty liver, ascitis, Alcoholism, Drug addiction. - Plan Plan: Patient in IV NS, Pain control, liquid diet. Consult with GI requested. Will continue to monitor
[2018-11-25] MEDS ORDERED: Multivitamin Inj 10 ML, Thiamine HCL 100 MG, Magnesium Sulfate 2 GM, Folic Acid 1 MG in... IV SCH (15:00)
--- NOTE | 2018-11-26 02:34 | Consultation ---
DATE OF CONSULTATION: 11/25/2018 REASON FOR CONSULTATION: Abnormal liver enzymes, abdominal pain. HISTORY OF PRESENT ILLNESS: This consult was obtained through the courtesy of Dr. Garrido for this 33-year-old with history of alcohol abuse, obesity, presenting to the hospital with abdominal pain. Apparently, the patient was at another facility, was diagnosed with gastritis. Continues to drink, came here with abdominal pain. He is shaky. He is tremulous and he stated his last drink was on Mother's Day, which was 2 days ago. The patient has nausea, vomiting. Denies any weight loss. PAST MEDICAL HISTORY: Alcohol abuse and gastritis. PAST SURGICAL HISTORY: Negative. SOCIAL HISTORY: He does not smoke. He drinks a jug of vodka, last time in 3 days. FAMILY HISTORY: Grandfather with colon cancer. REVIEW OF SYSTEMS: As stated above. ALLERGIES: No known drug allergies. PHYSICAL EXAMINATION: GENERAL: The patient is awake, oriented to self, place, and time, shaky, tremulous. VITAL SIGNS: Blood pressure is 139/82, heart rate 109, respiratory rate is 20, and temperature 98.1. HEAD AND NECK: Pupils reactive to light and accommodation. Extraocular muscles intact. Sclerae icteric. Conjunctivae not pale. Oral cavity, no lesion. NECK: Supple. CHEST: Good air entry. LUNGS: Clear to auscultation. CARDIOVASCULAR: Showed regular rate and rhythm. No murmur, rub, or gallop. ABDOMEN: Obese, Soft, positive bowel sound. ABDOMEN: Slightly tender, but firm. EXTREMITIES: Lower extremities, no edema. CENTRAL NERVOUS SYSTEM: Grossly nonfocal other than the shaking. LABORATORY DATA: Bilirubin is 4.6, AST 434, ALT 26, alkaline phosphatase 131, amylase 126, lipase 210. CAT scan showed fatty liver, trace ascites, hepatomegaly, splenomegaly, and atrophic right kidney. IMPRESSION: 1. A 33-year-old alcoholic, presented with abdominal pain, abnormal liver enzymes. This is alcoholic related liver disease or could be an acute alcoholic hepatitis, even though less likely, the patient might be going into withdrawal and to DTs. Recommendations: 1. Clear liquid diet. 2. IV fluids. 3. Librium around the clock. 4. Ativan p.r.n. 5. Monitor labs. 6. Watch for delirium tremens and withdrawal. 7. PPI. 2. Abdominal pain, most probably gastritis. Continuous PPI and as above. Avoid alcohol and continue supportive care. Also, the patient will need to be on vitamins. We will give him thiamine, folic acid, and B12. Thank you, Dr. Garrido, for allowing me to participate in the care of this patient. If you have any further questions, please let me know. [facility]# [id number]
--- NOTE | 2018-11-27 10:25 | Discharge Summary ---
General Discharge Summary - Discharge Summary Date of Admission: 11/24/18 Admitting Diagnosis: Abdominal pain, Pancreatitis, alcoholis. Discharge Date: 11/26/18 Discharge Diagnosis: Abdominal pain, Pancreatitis, Ascitis, fatty liver, alcoholism, Drug addiction. Hospital Course: Patient was started in IV NS, Pain control, NPO, Ativan, consult with GI was requested, Treatment: Patient was started with IV NS, Pain control, Ativa, NPO, Consult with GI was requested. Insurance transferred patient to other hospital. Condition at Discharge: Stable Disposition: TRANSFER TO ACUTE HOSP Home Medications: Home Medication Medication Instructions Recorded Type NK [No Home Meds] 02/07/18 History Zpack 1 tab PO DAILY #5 11/06/18 Rx Activity: As Tolerated Discharge Diet: NPO Consults and Follow-Up: ANTHONY PINA [Other] Matteo Garrido [Primary Care Provider] - Consulting Speciality: GI
== END 2018-11-26 01:49 | disposition short-term general hospital (02) | DRG 282 ==
LOC: ER 18:15 → MSI 22:33 → TELE 11-25 08:59
PROVIDERS: ADMIT General Practice; ATTEND General Practice
DX: K85.90 Acute pancreatitis without necrosis or infection, unspecified (principal); D68.9 Coagulation defect, unspecified; R18.8 Other ascites; K76.0 Fatty (change of) liver, not elsewhere classified; N39.0 Urinary tract infection, site not specified; I10 Essential (primary) hypertension; E87.6 Hypokalemia; R04.0 Epistaxis; F19.229 Other psychoactive substance dependence with intoxication, unspecified; F17.200 Nicotine dependence, unspecified, uncomplicated; F10.239 Alcohol dependence with withdrawal, unspecified; Z85.3 Personal history of malignant neoplasm of breast
CPT/HCPCS: 36415-UA; 80053-TC; 81001-TC; 82150-TC; 82948-90; 83690-TC; 85007-TC; 85025-TC; 85610-TC; 87086-90; 96374; 96375; J0696; J1170; J2060; J2405; J3411; J3475; J7030; Q9967; X6598; Z7610